=== PATIENT | male | born 1955 | race Hispanic/Latino ===

== ENCOUNTER → 2018-07-30 | Outpatient (CLI) | payer OTHER ==
[~2018-07-30] MED LIST: REGADENOSON 0.4 MG/5 ML SYR IV ONE
--- NOTE | 2018-07-31 15:51 | Myoview Stress Test ---
DATE OF STUDY: 07/30/2018 09:13:00 Stress Test - Treadmill ONLY CARDIOLOGY STRESS REPORT STRESS SUMMARY: The patient received Lexiscan for stress testing under the usual infusion protocol. Baseline heart rate was 63 beats per minute and increased to 80 beats per minute at stress. The baseline blood pressure was 145/77 and increased to 157/71, a maximal stress. There was no cardiac symptoms elicited throughout the stress protocol. The test was ended after the end of infusion protocol. ELECTROCARDIOGRAPHIC STRESS SUMMARY: Baseline 12-lead electrocardiogram showed normal sinus rhythm. Throughout the stress protocol, there was no ST deviations or significant arrhythmias noted. MYOCARDIAL PERFUSION IMAGING: Myocardial perfusion images revealed a small mild partially reversible inferior perfusion defect. Left ventricular ejection fraction 53%. CONCLUSIONS: 1. Normal clinical, hemodynamic, electrocardiographic stress test. 2. Abnormal myocardial perfusion imaging showing small mild inferior ischemia. 3. Normal left ventricular ejection fraction estimated at 53%. DO RAVEN Hunt/DOROTHY /[id number]
== END ==
LOC: NM 09:03 → EDSEX 09:03
PROVIDERS: ATTEND Internal Medicine Interventional Cardiology
DX: I20.8 Other forms of angina pectoris (principal)
CPT/HCPCS: 78452; 93017; A9502; J2785

== ENCOUNTER → 2018-11-13 | Day surgery (SDC) | payer OTHER ==
[2018-11-09 13:20] LABS: BASOPHILS # (AUTO) 0.1 (0.0-0.1); BASOPHILS % 0.5 % (0.0-1.0); EOSINOPHILS # (AUTO) 0.4 (0.0-0.4); EOSINOPHILS % 3.3 % (0.0-6.0); HEMATOCRIT 38.3 % (38.2-49.6); HEMOGLOBIN 12.9 g/dL (14.0-18.0); LYMPHOCYTES # (AUTO) 3.2 (1.0-3.2); MEAN CORPUSCULAR HEMOGLOBIN 30.6 pg (28-32); MEAN CORPUSCULAR HGB CONC 33.7 g/dL (31-35); MONOCYTES % 7.5 % (4.4-11.3); NEUTROPHILS # (AUTO) 8.4 (2.1-6.9); NEUTROPHILS % 64.2 % (38.7-80.0); PLATELET COUNT 215 x10e3/uL (140-360); RED BLOOD COUNT 4.21 x10e6/uL (4.3-5.7); RED CELL DISTRIBUTION WIDTH 13.7 % (11.7-14.4)
[2018-11-09 13:40] LABS: ALBUMIN/GLOBULIN RATIO 1.1 (0.8-2.0); ANION GAP 16.7 mmol/L (8-16); CALCIUM 9.8 mg/dL (8.4-10.2); CREATININE, SERUM 1.69 mg/dL (0.72-1.25); POTASSIUM 4.7 mmol/L (3.5-5.1)
--- NOTE | 2018-11-12 15:36 | NUR ---
Dr. Yen notified BUN 29, creatinine 1.69, and eGFR 41. Dr. Yen ordered to give IV fluids at time of IV start.
[~2018-11-13] VITALS: Ht 190.5 cm; Wt 166.9 kg
[2018-11-13] VITALS (15 sets, daily range): BP systolic 116–140; BP diastolic 54–84
[~2018-11-13] MED LIST changes: +ALLOPURINOL300 MG PO; +ALPRAZOLAM 0.5 MG TAB ONE; +AMLODIPINE BESY10 MG PO; +ASPIR 8181 MG PO; +ASPIRIN 325 MG TAB ONE; +ATORVASTATIN CA20 MG PO; +ATORVASTATIN CA40 MG PO; +BIVALRIUDIN 250 MG/VIAL VIAL IV ONE; +CLOPIDOGREL75 MG PO; +DIOVAN160 MG PO; +DIOVAN320 MG PO; +DIPHENHYDRAMINE HCL 25 MG CAP ONE; +DORZOLAMIDE-TIM10 ML OD; +ESIDRIX25 MG PO; +FENTANYL CITRATE/PF 100MCG/2 ML INJ ONE; +HEPARIN SOD/SOD CHLORIDE 2,000 ML ONE; +HUMALOG100 UNIT/3; +HUMALOG100 UNIT/3 SC; +HYDROCHLOROTHIA25 MG PO; +IOPAMIDOL 370 MG/ML 200 ML INFUS..BTL INJ ONE; +LATANOPROST2.5 ML OU; +LIDOCAINE HCL 2% LOCAL 20 ML VIAL ONE; +LOPRESSOR25 MG PO; +METFORMIN HCL1000 MG PO; +METFORMIN HCL500 MG PO; +METOPROLOL TART25 MG PO; +MIDAZOLAM HCL 2 MG/2 ML VIAL ONE; +NAPROXEN250 MG PO; +NAPROXEN500 MG PO; +NIACIN500 M1 PO; +NIACIN500 M2 PO; +OZEMPIC SC; +PRASUGREL 10 MG TAB ONE; -REGADENOSON 0.4 MG/5 ML SYR IV ONE; +SODIUM CHLORIDE 0.9% 1000ML 1,000 ML ONE; +SODIUM CHLORIDE 0.9% 50ML 50 ML ONE; +TRESIBA INSULIN SC; +VERAPAMIL HCL 2.5 MG/ML 2 ML VIAL ONE; +[UNRECOGNIZED DRUG - OTHER] SC
--- OUTSIDE RECORDS SUMMARY | 2018-11-13 09:33 | XMS REPORT ---
Author Author [facility] Address Unknown Phone Unavailable Care Team Providers Care Physician Executive Name Role Phone MARY GOOD Unavailable Unavailable Problems This patient has no known problems. Allergies, Adverse Reactions, Alerts This patient has no known allergies or adverse reactions. Medications This patient has no known medications. Results Test Description Test Time Test Comments Text Results Atomic Results Result Comments Stress Test - Treadmill ONLY 2018-07-31 12:44:00 [place] [address] Patient Name : LISETH JOHNSON MR #: [id number] : 1955 Age/Sex: 63/M Adm Physician : MARY GOOD MD Admit Date : 07/30/18 Location : [place] Room/Bed : REPORT: Myoview Stress Test DATE OF STUDY: 07/30/2018 09:13:00 Stress Test - Treadmill ONLY CARDIOLOGY STRESS REPORT STRESS SUMMARY: The patient received Lexiscan for stress testing under the usual infusion protocol. Baseline heart rate was 63 beats per minute and increased to 80 beats per minute at stress. The baseline blood pressure was 145/77 and increased to 157/71, a maximal stress. There was no cardiac symptoms elicited throughout the stress protocol. The test was ended after the end of infusion protocol. ELECTROCARDIOGRAPHIC STRESS SUMMARY: Baseline 12-lead electrocardiogram showed normal sinus rhythm. Throughout the stress protocol, there was no ST deviations or significant arrhythmias noted. MYOCARDIAL PERFUSION IMAGING: Myocardial perfusion images revealed a small mild partially reversible inferior perfusion defect. Left ventricular ejection fraction 53%. CONCLUSIONS: 1. Normal clinical, hemodynamic, electrocardiographic stress test. 2. Abnormal myocardial perfusion imaging showing small mild inferior ischemia. 3. Normal left ventricular ejection fraction estimated at 53%. DO RAVEN Hunt/DOROTHY /[id number] Signature Date Dictated By: LADI HENRY DO Transcribed By: DOROTHY on 07/31/18 <Electronically signed by LADI HENRY DO><<Signature on File>>09/21/18 1520 COPY TO:
--- NOTE | 2018-11-13 11:55 | NUR ---
bedside report received from Jocelin MEHTA. Alert oriented and appropriate, PERRLA, respirations even and unlabored to room air. Pulses x4 extremities equal and strong. Cap fill brisk < 3 sec. + neurovascular function to right hand. family at bedside . VS WNL trend. No gross needs at this time.assume of care
--- NOTE | 2018-11-13 12:30 | NUR ---
Nutrition provided to patient. TR band balloon decreased by 2ml- cgf
--- NOTE | 2018-11-13 12:45 | NUR ---
1245 RADIAL Compression removal: Initial Cuff volume 12 cc 1245p -2 cc Removed No hematoma/bleeding noted with normal neurovascular function. already by Florentino Ceron RN 1300p -2 cc Removed No hematoma/ bleeding noted with normal neurovascular function. 1315p -2 cc Removed No hematoma/bleeding noted with normal neurovascular function. 1330p -2cc Removed No hematoma/ bleeding noted with normal neurovascular function. Air removal completed. Ok for dc and 1630pm. awaiting bed disposition by supervisor powder and primer canning.To Tele observation Stasis achieved sterile 2x2,Tegaderm, Coban dressing No hematoma, bleeding noted with normal neurovascular function. Wrist splint in place. Pt instructed on POC. Ds/Rn
--- NOTE | 2018-11-13 12:45 | NUR ---
1245 Addendum: 11/13/18 at 2148 by Magda Clayton RN 1245 initial time documentation please disregard in error see second notation ds/rn
--- NOTE | 2018-11-13 13:00 | Operative Report ---
DATE OF PROCEDURE: 11/13/2018 SURGEON: Himanshu Yen MD INDICATION: Coronary artery disease, abnormal stress test. PROCEDURES PERFORMED: 1. Left heart catheterization, selective coronary angiography. 2. Stent placement to the mid and distal left anterior descending artery. 3. Deployment of right wrist TR band. COMPLICATIONS: None. RECOMMENDATIONS: Dual antiplatelet therapy for at least 6 months. DESCRIPTION OF PROCEDURE: Access obtained in the right radial artery using ultrasound guidance. A 5-Tanzanian sheath was placed. Intravenous heparin, Angiomax was administered for anticoagulation. Coronary angiography demonstrated mild disease, mild to moderate coronary artery disease in the left main circumflex right coronary artery of diffuse 30% to 50% luminal stenosis mid and distal right coronary artery 90% stenosis. A decision was made to intervene on the left anterior descending artery and left main was cannulated using an EBU 3.75, 5-Tanzanian guiding catheter. A short Luge wire was advanced across the lesion for support. Two stents overlapping 2.25 x 12 and 2.5 x 16 mm Elite 12 mm [place] [employer] Synergy stents were deployed with excellent end result, less than 10% residual stenosis RENITA-3 flow. No complications. Right wrist TR band applied. The patient discharged home same day. Himanshu Yen MD KSB/MODL /[id number]
--- NOTE | 2018-11-13 15:00 | NUR ---
1530p received tele observation bed 114.ok to dc at 1630pm. Will dc bed transfer and dc home TR band is off no gross issues pain,pallor pressure or dysrhythmia. PPx4 palpable /swollen and discolored. Bilateral feet will be reassessed Dr Farshad myers MD and pt aware of importance of f/o care.POC copies with family ds/rn
--- NOTE | 2018-11-13 16:30 | NUR ---
1630 Pt meets DC criteria. Rt Radial site assessed for s/s of complication and presence of hematoma. warm, dry, discolor feet, and pulses present. IV removed from left hand Distal tip appears intact. VS WNL. Pt denies pain, sob, or need at this time. Family at XXXXX. Review of discharge paperwork and follow up instructions. verbalized understanding. Pt to wheelchair and transported to front of hospital. Transferred to private vehicle under own strength w/o incident with DC paperwork in hand. - ds/rn
== END | disposition home or self-care (01) ==
LOC: CATH LAB 09:14
PROVIDERS: ATTEND Internal Medicine Interventional Cardiology
DX: I25.10 Atherosclerotic heart disease of native coronary artery without angina pectoris (principal); R94.39 Abnormal result of other cardiovascular function study; I10 Essential (primary) hypertension; E11.9 Type 2 diabetes mellitus without complications; Z01.812 Encounter for preprocedural laboratory examination; Z79.84 Long term (current) use of oral hypoglycemic drugs; Z79.82 Long term (current) use of aspirin; Z79.4 Long term (current) use of insulin
CPT/HCPCS: 36415; 76937; 80053; 85025; 92928; 93454; C1769 ×2; C1874; C1887; J0583; J2001; J2250; J3010; J7030; Q9967

== ENCOUNTER 2018-12-23 00:43 | Inpatient (IN) | payer OTHER ==
[~2018-12-23] VITALS: Ht 190.5 cm; Wt 152.4 kg
[2018-12-23] VITALS (8 sets, daily range): BP systolic 118–136; BP diastolic 56–68
[~2018-12-23 00:43] MED LIST changes: -ALPRAZOLAM 0.5 MG TAB ONE; -ASPIRIN 325 MG TAB ONE; -ATORVASTATIN CA40 MG PO; -BIVALRIUDIN 250 MG/VIAL VIAL IV ONE; -CLOPIDOGREL75 MG PO; -DIOVAN320 MG PO; -DIPHENHYDRAMINE HCL 25 MG CAP ONE; -DORZOLAMIDE-TIM10 ML OD; -ESIDRIX25 MG PO; -FENTANYL CITRATE/PF 100MCG/2 ML INJ ONE; -HEPARIN SOD/SOD CHLORIDE 2,000 ML ONE; -HUMALOG100 UNIT/3; -IOPAMIDOL 370 MG/ML 200 ML INFUS..BTL INJ ONE; -LATANOPROST2.5 ML OU; -LIDOCAINE HCL 2% LOCAL 20 ML VIAL ONE; -LOPRESSOR25 MG PO; -METFORMIN HCL1000 MG PO; -MIDAZOLAM HCL 2 MG/2 ML VIAL ONE; -NAPROXEN500 MG PO; -NIACIN500 M1 PO; -OZEMPIC SC; -PRASUGREL 10 MG TAB ONE; -SODIUM CHLORIDE 0.9% 1000ML 1,000 ML ONE; -SODIUM CHLORIDE 0.9% 50ML 50 ML ONE; -VERAPAMIL HCL 2.5 MG/ML 2 ML VIAL ONE
[2018-12-23] MEDS ORDERED: SODIUM CHLORIDE 0.9% 1000ML 1,000 ML ONE (00:57)
[2018-12-23] MEDS ORDERED: SODIUM CHLORIDE 0.9% 1000ML 1,000 ML IV ONE (01:00)
[2018-12-23 01:08] LABS: BASOPHILS # (AUTO) 0.1 (0.0-0.1); BASOPHILS % 0.6 % (0.0-1.0); EOSINOPHILS # (AUTO) 0.3 (0.0-0.4); EOSINOPHILS % 2.4 % (0.0-6.0); HEMATOCRIT 35.4 % (38.2-49.6); LYMPHOCYTES # (AUTO) 2.1 (1.0-3.2); LYMPHOCYTES % 18.1 % (18.0-39.1); MEAN CORPUSCULAR HEMOGLOBIN 30.8 pg (28-32); MEAN CORPUSCULAR HGB CONC 33.9 g/dL (31-35); MEAN CORPUSCULAR VOLUME 90.8 fL (81-99); MONOCYTES # (AUTO) 0.8 (0.2-0.8); MONOCYTES % 6.8 % (4.4-11.3); NEUTROPHILS # (AUTO) 8.4 (2.1-6.9); NEUTROPHILS % 71.8 % (38.7-80.0); PLATELET COUNT 234 x10e3/uL (140-360); RED CELL DISTRIBUTION WIDTH 13.9 % (11.7-14.4)
[2018-12-23 01:38] LABS: ALANINE AMINOTRANSFERASE 29 IU/L (0-55); ALBUMIN 4.1 g/dL (3.5-5.0); ALBUMIN/GLOBULIN RATIO 1.2 (0.8-2.0); ALKALINE PHOSPHATASE 93 IU/L (40-150); ANION GAP 18.4 mmol/L (8-16); BLOOD UREA NITROGEN 59 mg/dL (7-26); BUN/CREATININE RATIO 15 (6-25); CALCIUM 9.7 mg/dL (8.4-10.2); CARBON DIOXIDE 15 mmol/L (22-29); CHLORIDE 106 mmol/L (98-107); CREATINE KINASE 201 IU/L (30-200); CREATININE, SERUM 3.99 mg/dL (0.72-1.25); EST GLOMERULAR FILTRATION RATE 15 ML/MIN (60-); GLUCOSE 102 mg/dL (74-118); POTASSIUM 5.4 mmol/L (3.5-5.1); SODIUM 134 mmol/L (136-145)
--- NOTE | 2018-12-23 01:44 | Diagnostic Imaging Report ---
EXAMINATION: Head CT without contrast. HISTORY:Dizziness. COMPARISON:None. TECHNIQUE: Multidetector axial images were obtained from the foramen magnum to the vertex without contrast. The images were reconstructed using brain and bone algorithms. Thin section brain images were reformatted into coronal and sagittal planes. Dose modulation, iterative reconstruction, and/or weight based adjustment of the mA/kV was utilized to reduce the radiation dose to as low as reasonably achievable. Intravenous contrast: None IMAGE QUALITY: Suboptimal evaluation particularly at the level of skull base and posterior fossa structures due to streak artifacts. FINDINGS: Skull/scalp: No lytic or blastic. lesions. No surgical changes. Parenchyma: Nonspecific few, scattered supratentorial white matter hypodensity are likely related to small vessel ischemic changes. No acute hemorrhage, mass or acute major vascular territorial infarct. Arteries: No density suggestive of thrombosis. Atherosclerotic calcification in bilateral carotid siphon and V4 segment of vertebral arteries. Dural sinuses: No abnormal density suggestive of thrombosis. Ventricles: No hydrocephalus or displacement. Extra-axial spaces: No abnormal density. Brain volume: Normal for age. Craniocervical junction: No mass, Chiari malformation, or basilar invagination. Sella: No mass. Paranasal/mastoid sinuses: Imaged portions unremarkable. IMPRESSION: No acute intracranial abnormality. Mild supratentorial white matter microvascular ischemic changes. Signed by: Dr. Esperanza Valdivia M.D. on 12/23/2018 1:41 AM
--- NOTE | 2018-12-23 01:57 | Diagnostic Imaging Report ---
Examination: Single portable AP view of the chest. COMPARISON: None. INDICATION: Dizziness for one day IMPRESSION: 1. Lines and Tubes: None 2. Lungs are grossly clear. No consolidation or effusion. 3. Cardiomediastinal silhouette is normal. Pulmonary vasculature is normal. 4. No acute bony abnormalities. Signed by: Dr. Anthony Michaels M.D. on 12/23/2018 1:54 AM
[2018-12-23] MEDS ORDERED: ONDANSETRON HCL INJ 2MG/ML 2ML 2 MG/ML VIAL IV STA (01:58)
[2018-12-23] MEDS ORDERED: MECLIZINE HCL 12.5 MG TAB PO ONE (02:00)
--- NOTE | 2018-12-23 02:01 | NUR ---
PT STATES FEELS LIKE HE IS GOING TO VOMIT SUDDENLY, MD AWARE, MEDICATED PER ORDERS
--- NOTE | 2018-12-23 02:14 | NUR ---
REPEAT BMP COLLECTED AND SENT
[2018-12-23 02:49] LABS: ANION GAP 17.5 mmol/L (8-16); CALCIUM 9.4 mg/dL (8.4-10.2); CREATININE, SERUM 3.74 mg/dL (0.72-1.25); POTASSIUM 5.5 mmol/L (3.5-5.1)
[2018-12-23] MEDS ORDERED: SODIUM BICARBONATE 8.4% INJ 50 ML SYR IV STA (02:58)
[2018-12-23] MEDS ORDERED: CALCIUM CHLORIDE 10% 1.36 MEQ/ML 10ML SYR IV STA (02:58)
[2018-12-23] MEDS ORDERED: INSULIN REGULAR, HUMAN 100 UNIT/1 ML 3ML VIAL IV ONE (03:00)
[2018-12-23] MEDS ORDERED: DEXTROSE 50% SYRINGE 50 ML IV ONE (03:00)
[2018-12-23] MEDS ORDERED: LIDOCAINE JELLY 2% 10ML URO-JET TOP ONE (03:00)
--- NOTE | 2018-12-23 03:00 | NUR ---
BLADDER SCAN PERFORMED WITH FOLLOWING RESULTS: >465 >720 >640 PT ATTEMPTED TO VOID IN URINAL AND COULD NOT VOID. PT ALSO RELATES HE HAS ELEVATED PSA LEVELS AND RECENTLY TOOK ANTIBIOTICS FOR PROSTATE. DR WYLIE INFORMED.
[2018-12-23] MEDS ORDERED: SODIUM CHLORIDE 0.9% 50ML 50 ML ONE (03:13)
[2018-12-23] MEDS ORDERED: LATANOPROST2.5 ML OU (03:33)
[2018-12-23] MEDS ORDERED: NAPROXEN500 MG PO (03:33)
[2018-12-23] MEDS ORDERED: ATORVASTATIN CA40 MG PO (03:33)
[2018-12-23] MEDS ORDERED: OZEMPIC SC (03:33)
[2018-12-23] MEDS ORDERED: CLOPIDOGREL75 MG PO (03:33)
[2018-12-23] MEDS ORDERED: HUMALOG100 UNIT/3 (03:33)
[2018-12-23] MEDS ORDERED: LOPRESSOR25 MG PO (03:33)
[2018-12-23] MEDS ORDERED: DIOVAN320 MG PO (03:33)
[2018-12-23] MEDS ORDERED: ESIDRIX25 MG PO (03:33)
[2018-12-23] MEDS ORDERED: DORZOLAMIDE-TIM10 ML OD (03:33)
[2018-12-23] MEDS ORDERED: METFORMIN HCL1000 MG PO (03:33)
[2018-12-23] MEDS ORDERED: NIACIN500 M1 PO (03:33)
--- NOTE | 2018-12-23 03:44 | NUR ---
INITIAL OUTPUT FROM [facility] 1000 AND STILL FLOWING, CLAMPED FOR 20 MINUTES, EMPTIED ADDITIONAL 1000 FROM [facility], CLAMPED AGAIN, DR WYLIE INFORMED.
[2018-12-23] MEDS ORDERED: DEXTROSE 5%/0.45% SOD CHL 1,000 ML IV ONE (03:53)
[2018-12-23] MEDS ORDERED: SODIUM BICARBONATE 8.4% SYRING 100 ML ONE (03:53)
[2018-12-23] MEDS ORDERED: DEXTROSE 50% SYRINGE 50 ML IV PRN (04:00)
[2018-12-23] MEDS ORDERED: SOD CHL IV SCH (04:00)
[2018-12-23] MEDS ORDERED: OZEMPIC 0.5 MG SC SCH ×2 (04:00→09:00)
[2018-12-23] MEDS ORDERED: DEXTROSE IV SCH (04:00)
[2018-12-23] MEDS ORDERED: ONDANSETRON HCL INJ 2MG/ML 2ML 2 MG/ML VIAL IV PRN (04:00)
[2018-12-23] MEDS ORDERED: SODIUM BICARBONATE IV SCH (04:00)
[2018-12-23 04:14] LABS: BILIRUBIN,URINE NEGATIVE (NEGATIVE); CLARITY,URINE CLEAR (CLEAR); COLOR,URINE YELLOW (YELLOW); KETONES,URINE NEGATIVE (NEGATIVE); LEUKOCYTE ESTERASE ,URINE NEGATIVE (NEGATIVE); NITRITE,URINE NEGATIVE (NEGATIVE); PROTEIN,URINE DIPSTICK NEGATIVE (NEGATIVE); URINE UROBILINOGEN 0.2 mg/dL (0.2 - 1)
--- NOTE | 2018-12-23 04:18 | NUR ---
unclamped frias, additional 750ml emptied, now draining to gravity
[2018-12-23] MEDS ORDERED: SODIUM BICARBONATE 8.4% SYRING 75 ML in DEXTROSE 5%/0.45% SOD CHL 1,000 ML IV SCH (04:30)
--- NOTE | 2018-12-23 04:40 | NUR ---
PATIENT WAS BROUGHT FROM ER IN A STRETCHER WITH C/O DIZZY AND NECK PAIN.AAOX3.TELE #[address] SH[address]ING SRJESSICA IS IN PLACE.ASSESSMENT DONE.NO RESP.DISTRESS NO PAIN VOICED RIGHT NOW.ORIENTED TO THE UNIT.DRAINING WELL.BED LOCKED AND IN LOWEST POSITION.PHONE AND CALL LIGHT WITHIN REACH.INSTRUCTED TO CALL FOR ASSISTANCE NEEDED.
[2018-12-23 04:47] LABS: BACTERIA,URINE MANY /HPF; EPITHELIAL CELLS,URINE MANY /LPF
[2018-12-23 04:54] LABS: SODIUM,URINE 60 mmol/L
--- NOTE | 2018-12-23 06:59 | NUR ---
BED SIDE SHIFT REPORT GIVEN TO THE ONCOMING RN.STABLE CONDITION.
[2018-12-23] MEDS: INSULIN REGULAR, HUMAN 100 UNIT/1 ML 3ML VIAL SQ SCH ×4 (07:30→20:37)
[2018-12-23] MEDS: ALLOPURINOL 300 MG TAB PO SCH (08:59)
[2018-12-23] MEDS: NIACIN 500 MG TABSR PO SCH (08:59)
[2018-12-23] MEDS: CLOPIDOGREL BISULFATE 75 MG TAB PO SCH (08:59)
[2018-12-23] MEDS: ASPIRIN 81 MG CHEW TAB PO SCH (08:59)
[2018-12-23] MEDS ORDERED: NON-FORMULARY MEDICATION (Atorvastatin Calcium 40 MG) PO SCH (09:00)
[2018-12-23] MEDS ORDERED: NON-FORMULARY MEDICATION (Dorzolamide Hcl/Timolol Maleat (Dorzolamide-Timolol Eye Drops) 1 OD SCH (09:00)
[2018-12-23] MEDS ORDERED: LATANOPROST(OPTH) 2.5 ML BTL OU SCH (09:00)
[2018-12-23] MEDS ORDERED: NIACIN 1000 MG PO SCH (09:00)
--- NOTE | 2018-12-23 11:03 | History and Physical ---
CHIEF COMPLAINT: A 63-year-old male comes in with dizziness. HISTORY OF PRESENT ILLNESS: Mr. Fu was out dancing with his , started out with a neck pain, which later on led on to dizziness and the patient came into the emergency room. The patient had a similar episode of this, but not of this intensity about a week ago, did not go to the hospital. Has been following up with his primary care physician, Dr. Castano and also with his lathe hand, Dr. Dudley. No kidney function problems have been noted earlier, but this particular time the patient came in the patient had an elevated creatinine and is admitted for the same. PAST MEDICAL HISTORY: History of diabetes mellitus. Last A1c was 6.2. History of elevated PSA, has been started on antibiotics unknown name, history of hypertension, history of CAD, history of hyperlipidemia, and history of glaucoma. MEDICATIONS: Allopurinol 300 mg daily, amlodipine 10 mg daily, aspirin 81 mg daily, atorvastatin 40 mg daily, Plavix 75 mg daily. The patient also takes timolol and dorzolamide one drop b.i.d., hydrochlorothiazide 25 mg daily, insulin Humalog, latanoprost, metformin 1000 mg twice a day, metoprolol, Lopressor 25 mg twice a day, naproxen 500 mg b.i.d., and valsartan 320 mg daily. The patient has been started on Ozempic on a daily basis too. PAST SURGICAL HISTORY: History of gallbladder removal, history of appendectomy, history of lipoma of head, history of hammertoes being corrected, history of cataract surgery, history of recent stent by Dr. Delarosa and also history of vein ablation by Dr. Dow for peripheral vascular disease, and also for venous insufficiency. FAMILY HISTORY: Father with dementia and also with BPH. The patient's mother with history esophageal cancer. SOCIAL HISTORY: No smoking, social drinker. REVIEW OF SYSTEMS: Negative for chest pain. No shortness of breath. No nausea. No vomiting. Positive for dizziness as mentioned above and neck pain. No diplopia. No blurry vision and positive for neck pain too. PHYSICAL EXAMINATION: VITAL SIGNS: Temperature is 98.3, pulse of 86, respirations of 16, blood pressure is 118/56, pulse oximetry of 96% on room air. HEENT: Normocephalic, atraumatic. The patient is obese. NECK: Positive for tenderness in the C5-C6 area. The patient also has decreased flexibility in the neck, pain on flexion and extension. Tenderness in the paraspinal muscles. CVS: S1, S2 distant. Regular rate and rhythm. ABDOMEN: Nontender, nondistended. LUNGS: Good air entry. ABDOMEN: Nontender, nondistended. EXTREMITIES: No clubbing, no cyanosis. Positive for venous changes and venous dermatitis present. Positive onychomycosis to a decreased sensation. LABORATORY DATA: [place] [address], hemoglobin of 12, hematocrit 35.4. Chemistry, sodium of 135, potassium 5.5, BUN of 59, creatinine of 3.74 with a GFR of 16. CK was 201. Troponins were not done. Urine, white count 6 to 10. IMAGING STUDIES: CT of the brain essentially normal. Chest x-ray, no acute bony abnormalities. ASSESSMENT: This is a 63-year-old gentleman with. 1. History of dizziness. 2. Acute kidney injury. 3. Obstructive uropathy. 4. Diabetes mellitus. 5. Hypertension. 6. Hyperlipidemia. 7. Morbid obesity. 8. History of intake of NSAIDs. PLAN: 1. Plan would be to hydrate the patient. A consult with Dr. Romo has been done and consult with Dr. Hoskins has been done too. 2. Continue with his medication. We will take him off his metformin, take him off his Esidrex and continue on allopurinol, aspirin, and also atorvastatin. Insulin sliding skin has been implemented. Further recommendation per clinical course. We will continue to monitor the patient. MD LOIS Valadez/MODL /[id number]
[2018-12-23 12:21] LABS: ANION GAP 12.9 mmol/L (8-16); CALCIUM 9.4 mg/dL (8.4-10.2); CREATININE, SERUM 2.77 mg/dL (0.72-1.25); POTASSIUM 4.9 mmol/L (3.5-5.1)
[2018-12-23] MEDS: DORZOLAMIDE/TIMOLOL/PF 1 EACH DROPERETTE OP SCH ×2 (15:48→15:51)
[2018-12-23] MEDS: SODIUM BICARBONATE 8.4% SYRING 75 ML in DEXTROSE 5%/0.45% SOD CHL 1,000 ML IV SCH (15:48)
--- NOTE | 2018-12-23 16:45 | Consultation ---
DATE OF CONSULTATION: Cardiology Consultation REQUESTING PHYSICIAN: Uche Knutson MD. REASON FOR CONSULTATION: Hypotension and also ongoing cardiovascular disease. HISTORY OF PRESENT ILLNESS: Mr. Link is a 63-year-old male with a pertinent past medical history of coronary artery disease, status post LAD PCI on the November 13, 2018. Also, hypertension and diabetes. He states that he has been doing well and also dances a lot. However, recently the last 2 weeks noticed as soon as he started dancing, he would experience severe neck pain and prior to coming into the ER yesterday, his neck pain was the worst he has ever experienced and he also started experiencing dizziness and leg weakness. He also does report for the last few weeks to months, he has noticed not being able to urinate as much as he used to. He is noted to be in acute renal failure on admission. We were consulted to see this patient due to presenting blood pressures of 80s over 50s. The patient does report that he was on 4 antihypertensives at home, of which he has been taking faithfully. He also reports recent medication change per his survey manager, Dr. Emily Dudley. He reports that he was recently started on Ozempic and also metformin and has lost 36 pounds in the last month. At this present time, he denies any chest pain, shortness of breath, palpitations, dizziness, syncope, fever, chills, or abdominal pain. He does endorse bilateral lower extremity edema and also recent burning with irritation and recent treatment for prostatitis. PAST MEDICAL HISTORY: Diabetes type 2, hypertension, and coronary artery disease with a recent LAD PCI. PAST SURGICAL HISTORY: Appendectomy, cholecystectomy, and cataract surgery. SOCIAL HISTORY: He is and lives with his . REVIEW OF SYSTEMS: Negative except as mentioned above. PHYSICAL EXAMINATION: GENERAL: Alert and oriented x3. Resting comfortably in bed. Does not appear to be in any acute distress. NECK: Supple. No JVD noted. LUNGS: Diminished breath sounds throughout. No wheezing. No rhonchi or crackles. CARDIOVASCULAR: Regular rate and rhythm. Normal S1 and S2. No murmurs, no gallops noted. ABDOMEN: Rounded, soft, and nontender. EXTREMITIES: Lower extremity, 2+ nonpitting edema with bilateral hyperpigmentation noted. VITAL SIGNS: Temperature 98.3, pulse 88, respiratory rate 16, blood pressure 104/49, and oxygen saturation 99% on room air. CARDIOVASCULAR MEDICATIONS: Plavix 75 mg p.o. daily, aspirin 81 mg p.o. daily, and atorvastatin 40 mg p.o. at bedtime. LABORATORY DATA: WBC 11.70, hemoglobin 12.0, hematocrit 35.4, and platelets 234. Sodium 137, potassium 4.9, BUN 44, and creatinine 2.77. Chest x-ray with no consolidation or effusion. No acute bony abnormalities. CT scan of the brain with no acute intracranial abnormalities. There is mild supratentorial white matter microvascular ischemic changes. TELEMETRY: Normal sinus rhythm. IMPRESSION: 1. Acute renal failure. 2. Coronary artery disease, status post LAD PCI on 11/13/2018. 3. Diabetes mellitus type 2. 4. Hypotension with a history of hypertension. 5. Hyperlipidemia. 6. Morbid obesity. 7. History of NSAID use. RECOMMENDATIONS: Maintain on telemetry at all time. Continue the above-listed cardiac medications. The patient's diabetic medications will be continued at this time. He has been taken off his metformin and also Ozempic at this time. Nephrology has been consulted. We will await their recommendations. At this time, continue with IV hydration and continue to monitor the patient very closely. We expect the blood pressure to stabilize and improve, as the patient gets more IV hydration. For now, continue to monitor blood pressure closely. The patient will need assistance out of bed. We will continue to follow this patient very closely. We will review his recent testing from the office. If further needed testing is indicated, we will pursue it. Thank you very much for this consultation, Dr. Knutson, we appreciate. Dictated by Kiera Peña, CLAYTON Himanshu Yen MD JWV/MODL /[id number]
[2018-12-23 17:02] LABS: CREATININE,URINE RANDOM 36.2 mg/dL (63-166)
[2018-12-23] MEDS: ATORVASTATIN 40 MG TAB PO SCH (21:31)
--- NOTE | 2018-12-23 21:37 | Consultation ---
DATE OF CONSULTATION: 12/23/2018 Renal Consultation REQUESTING PHYSICIAN: Uche Knutson MD. REASON FOR CONSULTATION: 1. Elevated serum creatinine. 2. Fluids, electrolytes, and acid-base management. 3. Hyperkalemia. 4. Acidosis. HISTORY OF PRESENT ILLNESS: This is a pleasant 63-year-old man with a history of: 1. Diabetes mellitus. 2. Hypertension. 3. Coronary artery disease. 4. History of elevated PSA. 5. Dyslipidemia. 6. Glaucoma. 7. Cholecystectomy. 8. Appendectomy. 9. Cataract surgery. 10. Chronic lymphedema. 11. Peripheral vascular disease. The patient was admitted to [facility] for elevated serum creatinine, hyperkalemia, and acidosis after he presented with a chief complaint of dizziness. His labs on admission showed serum creatinine level of 3.9 with BUN of 59, potassium of 5.4, sodium of 134 with serum bicarbonate of 15. He was medically treated and is currently on IV fluids with sodium bicarbonate and his serum creatinine has improved to 2.7 with BUN of 44 and improvement of serum potassium to 4.9 from 5.4. The patient's family member is at bedside. No report of chest pain, shortness of breath, nausea, vomiting, diarrhea, fever, or dysuria at the present time. His urine output was low and per report, had good urine output after placement of Greene catheter. MEDICATIONS: His home medication list includes metformin and ARB. PAST MEDICAL HISTORY: As per HPI. PAST SURGICAL HISTORY: As per HPI. ALLERGIES: TO MEDICATIONS, PER MAR. SOCIAL HISTORY: Negative x2. Social drinking. FAMILY HISTORY: Positive for cancer and dementia. REVIEW OF SYSTEMS: Positive for dizziness on admission as per HPI. Rest of the review of systems essentially negative. The patient is having no complaints of chest pain, shortness of breath, nausea, vomiting, diarrhea, fever, or headache. PHYSICAL EXAMINATION: GENERAL: Pleasant man in bed, in no acute respiratory distress at the present time. VITAL SIGNS: Blood pressure is 130/61, pulse is 87, respiratory rate 12, input and output noted. HEENT: Head atraumatic, normocephalic. NECK: Supple. LUNGS: Clear to auscultation bilaterally. CARDIOVASCULAR: S1 and S2 heard. ABDOMEN: Soft, obese. EXTREMITIES: Chronic lymphedema. NEUROLOGIC: Awake, alert. PSYCHIATRIC: Normal mood. GENITOURINARY: Greene catheter in place. LABORATORY DATA: Serum sodium 137, potassium 4.9, chloride 108, bicarbonate 21, BUN 44, creatinine 2.7, calcium is 9.4. Labs on admission showed serum sodium of 134, potassium 5.4, chloride 106, bicarbonate 15, BUN 59 with creatinine of 3.9. Hemoglobin is 12.0. IMAGING DATA: Chest x-ray findings noted. ASSESSMENT: 1. Acute kidney injury versus acute kidney injury on chronic kidney disease. 2. Hyponatremia-improved. 3. Hyperkalemia-improved. 4. Acidosis. 5. Urinary retention. 6. Diabetes mellitus. 7. Hypertension. 8. Obesity. 9. Chronic lymphedema. PLAN: 1. Differential for acute kidney injury includes prerenal azotemia versus acute tubular necrosis versus obstructive uropathy. Renal function is improving after placement of Greene catheter with good urine output. We will check renal ultrasound to evaluate the kidneys and rule out obstruction. We will continue to monitor renal indices and urine output. We will check UA plus microscopic analysis, urine sodium and urine creatinine levels. 2. Continue IV fluids with sodium bicarbonate for now. He has a history of chronic lymphedema. Once electrolyte, renal indices, and acid-base status improves, may consider to discontinue IV fluids. 3. Hyperkalemia in the setting of acute kidney injury plus acidosis plus possible obstructive uropathy plus ARB use at home. Hold valsartan. IV fluids with sodium bicarbonate as above. Improving serum potassium. Low-potassium diet for now. 4. Acidosis is improving. Continue sodium bicarbonate drip. 5. Monitor serum calcium, phosphorus, and magnesium levels. 6. Blood pressure is stable. Monitor. 7. Accu-Cheks and diabetes mellitus management plan by team. Stop metformin for now. 8. Strict I's and O's and daily weights. 9. Renally dose all medications. 10. Avoid NSAIDs except aspirin. 11. He is presently nonoliguric with no uremic symptoms. Therefore, no urgent indication for hemodialysis at the present time. We will continue to closely monitor his renal function, LFT status, serum electrolytes, urine output, and acid-base status. Thank you for the interesting consult. We will continue to closely follow the patient. Please do not hesitate to call us for any further questions. MD JOSS Quigley/DOROTHY /[id number]
--- NOTE | 2018-12-23 21:40 | Diagnostic Imaging Report ---
EXAM: Renal Ultrasound INDICATION: ^DEJUAN ^[id number] ^[id number] COMPARISON: None TECHNIQUE: Transverse and longitudinal images of the kidneys and bladder were obtained. FINDINGS: Right Kidney: Size: 13.5 cm, right renal cortex 2.6 cm. Appearance: Normal echogenicity. Collecting system: No hydronephrosis Stones: None Cyst/Mass: None Left Kidney: Size: 12.7 cm, left renal cortex 2.4 cm. Appearance: Normal echogenicity. Collecting system: No hydronephrosis Stones: None Cyst/Mass: None Bladder: Decompressed, with Greene catheter in place IMPRESSION: Right renal size in the upper limit of normal. Normal bilateral cortical thickness and echogenicity, without hydronephrosis, stones or solid lesions Signed by: Dr. Anthony Michaels M.D. on 12/23/2018 9:37 PM
[2018-12-23] MEDS: LATANOPROST(OPTH) 2.5 ML BTL OU SCH (22:30)
[2018-12-24] VITALS (7 sets, daily range): BP systolic 137–169; BP diastolic 54–81
--- NOTE | 2018-12-24 00:29 | NUR ---
Assessment done.no resp.distress.no pain voiced.frias care given.bed locked and in lowest position.phone and call light within reach.instructed to call for assistance as needed.
[2018-12-24] MEDS: SODIUM BICARBONATE 8.4% SYRING 75 ML in DEXTROSE 5%/0.45% SOD CHL 1,000 ML IV SCH ×2 (00:35→12:50)
[2018-12-24 06:31] LABS: BASOPHILS # (AUTO) 0.1 (0.0-0.1); BASOPHILS % 0.8 % (0.0-1.0); EOSINOPHILS # (AUTO) 0.3 (0.0-0.4); EOSINOPHILS % 3.3 % (0.0-6.0); HEMATOCRIT 35.1 % (38.2-49.6); HEMOGLOBIN 11.5 g/dL (14.0-18.0); LYMPHOCYTES # (AUTO) 2.4 (1.0-3.2); LYMPHOCYTES % 23.4 % (18.0-39.1); MEAN CORPUSCULAR HEMOGLOBIN 30.3 pg (28-32); MEAN CORPUSCULAR HGB CONC 32.8 g/dL (31-35); MEAN CORPUSCULAR VOLUME 92.4 fL (81-99); MONOCYTES # (AUTO) 0.9 (0.2-0.8); NEUTROPHILS # (AUTO) 6.5 (2.1-6.9); NEUTROPHILS % 63.1 % (38.7-80.0); PLATELET COUNT 213 x10e3/uL (140-360)
[2018-12-24 06:54] LABS: ALBUMIN 3.7 g/dL (3.5-5.0); ALBUMIN/GLOBULIN RATIO 1.1 (0.8-2.0); ANION GAP 12.6 mmol/L (8-16); CALCIUM 9.8 mg/dL (8.4-10.2); CREATININE, SERUM 1.64 mg/dL (0.72-1.25); POTASSIUM 4.6 mmol/L (3.5-5.1)
[2018-12-24 07:14] LABS: MAGNESIUM 1.8 MG/DL (1.3-2.1); PHOSPHORUS 2.8 MG/DL (2.3-4.7)
--- NOTE | 2018-12-24 07:18 | NUR ---
BED SIDE SHIFT REPORT GIVEN TO THE ONCOMING RN.STABLE CONDITION.
[2018-12-24] MEDS: INSULIN REGULAR, HUMAN 100 UNIT/1 ML 3ML VIAL SQ SCH ×4 (07:30→21:00)
[2018-12-24] MEDS: DORZOLAMIDE/TIMOLOL/PF 1 EACH DROPERETTE OP SCH ×2 (08:24→16:58)
[2018-12-24] MEDS: ASPIRIN 81 MG CHEW TAB PO SCH (08:24)
[2018-12-24] MEDS: CLOPIDOGREL BISULFATE 75 MG TAB PO SCH (08:25)
[2018-12-24] MEDS: ALLOPURINOL 300 MG TAB PO SCH (08:25)
[2018-12-24] MEDS: NIACIN 500 MG TABSR PO SCH (08:25)
--- NOTE | 2018-12-24 09:06 | Progress Note ---
DATE: SUBJECTIVE: The patient comes in with acute renal failure, post-obstructive, history of diabetes mellitus, and history of dizziness. Currently, the patient is feeling better. Urine catheter in and Greene catheter in. No chest pain. No shortness of breath. Has no dizziness at this time either. OBJECTIVE: VITAL SIGNS: Temperature is 98.1, pulse of 74, respirations of 18, blood pressure is 141/62, pulse oximetry of 98%. HEENT: Normocephalic, atraumatic. Pupils are reactive to light and accommodation. The patient has a component of sleep apnea. CVS: S1, S2 normal. Regular rate and rhythm. Distant. EXTREMITIES: No clubbing. No cyanosis. Trophic changes and vascular changes present in the lower extremities. The patient has a Greene catheter further to gravity. LABORATORY VALUES: White count is 10.23, hemoglobin of 11.5, hematocrit of 35.7, downtrend. Sodium, potassium, and creatinine are pending at this time. IMAGING STUDIES: No imaging studies were done since yesterday. Medications as per medical reconciliation sheet and noted. ASSESSMENT: 1. History of dizziness. 2. Acute kidney injury. 3. Post-obstructive uropathy, urinary retention. 4. Diabetes mellitus. 5. Hypertension. 6. Hyperlipidemia. 7. Morbid obesity with hypoventilation syndrome. 8. Signs of radiculopathy. PLAN: Continue with Greene catheter. Awaiting cultures. All nephrotoxic medications have been discontinued. We will keep the patient on his allopurinol, aspirin, and atorvastatin. Further recommendations per clinical course and also on blood work and results. MD LOIS Valadez/MODL /[id number]
--- NOTE | 2018-12-24 09:56 | Consultation ---
DATE OF CONSULTATION: 12/23/2018 Urologic Consultation Consultation is called by Dr. Rodriguez in the emergency room, Dr. Uche Knutson. CHIEF COMPLAINT AND REASON FOR CONSULTATION: Urinary retention. HISTORY OF PRESENT ILLNESS: Mr. Link is a 63-year-old male, admitted to the hospital with dizziness, found to have urinary retention greater than 1000 mL, positive history of BPH, diabetes mellitus, coronary artery disease status post stent, gout, status post appendectomy, status post cholecystectomy. MEDICATIONS: Please see MAR, but most notable for aspirin and Plavix. ALLERGIES: NKDA. SOCIAL HISTORY: Denied smoking or drinking. FAMILY HISTORY: Denied urologic stones or malignancies. REVIEW OF SYSTEMS: Noncontributory other than problems mentioned above for 12 organ systems. PHYSICAL EXAMINATION: GENERAL: Elderly male, currently in no acute distress. VITAL SIGNS: Temperature 98.3, pulse 86, respirations 18, and blood pressure 118/56. HEENT: Sclerae anicteric. NECK: Supple. BACK: Without costovertebral angle tenderness bilaterally. ABDOMEN: Soft. It is nontender. It is nondistended. No palpable mass. No palpable hernias. No palpable adenopathy. : Normal male external genitalia. EXTREMITIES: No edema. NEUROLOGIC: Moves all 4 extremities. PSYCHIATRIC: Alert and appropriate. SKIN: Intact, normal color. PERTINENT LABORATORY DATA: Sodium 135, potassium 5.5, chloride 107, bicarb 16, BUN 59, creatinine 3.74, glucose 98. Hemoglobin 12, hematocrit 35, platelet count 234,000, white cell count 11,000. Urinalysis, 6-10 whites, 0 reds. IMPRESSION: 1. Urinary retention. 2. Benign prostatic hypertrophy. 3. Elevated PSA. 4. Urinary tract infection, present on admission. 5. Hyperkalemia. 6. Acute renal failure on chronic kidney disease, stage 4. 7. Obesity. PLAN: We will perform upper tract imaging to ensure there is no obstructive component of the renal failure. Defer lytes and heme to the primary and Nephrology. With elevated PSA, we would not recheck PSA at this time as will be retention. Thank you for allowing me to participate in the care of the patient. We will be happy to follow along with you. MD JALEEL Valenzuela/MODL /[id number]
[2018-12-24] MEDS ORDERED: ONDANSETRON HCL 4 MG ORAL DISINTEGRATING TAB PO PRN (10:45)
[2018-12-24 14:27] LABS: BILIRUBIN,URINE NEGATIVE (NEGATIVE); CLARITY,URINE CLEAR (CLEAR); COLOR,URINE YELLOW (YELLOW); KETONES,URINE NEGATIVE (NEGATIVE); LEUKOCYTE ESTERASE ,URINE TRACE (NEGATIVE); NITRITE,URINE NEGATIVE (NEGATIVE); PROTEIN,URINE DIPSTICK TRACE (NEGATIVE); URINE UROBILINOGEN 0.2 mg/dL (0.2 - 1)
[2018-12-24 14:44] LABS: CREATININE,URINE RANDOM 104.89 mg/dL (63-166); EPITHELIAL CELLS,URINE RARE /LPF; RBC,URINE 21-50 /HPF (0-5); TOTAL PROTEIN, URINE 22.6 mg/dL (1-14); WBC,URINE (MAN) 0-5 /HPF (0-5)
--- NOTE | 2018-12-24 18:20 | Progress Note ---
DATE: 12/24/2018 Cardiology Progress Note SUBJECTIVE: No major events overnight. OBJECTIVE: VITAL SIGNS: Temperature 98.1, pulse 71, respiratory rate 18, blood pressure 137/58, saturating 98% on room air. GENERAL: Obese, man, in no acute distress. CARDIOVASCULAR: Regular rate and rhythm. No murmurs, rubs, or gallops. LUNGS: Clear to auscultation bilaterally. ABDOMEN: Soft, nontender, nondistended. NEURO AND PSYCH: Alert and oriented to person, place, and time. Normal affect. INPATIENT MEDICATIONS: Reviewed. LABORATORY DATA: Reviewed. TELEMETRY DATA: Reviewed, shows normal sinus rhythm. ASSESSMENT AND PLAN: 1. Acute renal failure. 2. Coronary artery disease, status post LAD PCI on 11/13/2018. 3. Diabetes. 4. Hypotension with history of hypertension. 5. Hyperlipidemia. 6. Morbid obesity. RECOMMENDATIONS: Renal function is improving. Defer management to Nephrology. Doing well from cardiovascular standpoint. Continue dual antiplatelet therapy and current cardiovascular regimen. Thank you for this consult. We will continue to follow. MD ENRIQUE Tim/DOROTHY /[id number]
--- NOTE | 2018-12-24 19:00 | NUR ---
received report from day nurse. patient is resting comfortably in bed. bed is in lowest position and call light is within reach. will continue to monitor patient.
--- NOTE | 2018-12-24 19:10 | NUR ---
Report given to oncoming nurse of patient's status. Resting in bed, side rails upx2, call light within reach. Family at bedside AAOX4 to time, person, place, situation. Respirations even and unlabored. Denies pain.
--- NOTE | 2018-12-24 21:06 | Consultation ---
DATE OF CONSULTATION: 12/24/2018 History is predominantly from the patient and partly from . HISTORY OF PRESENT ILLNESS: This is a 63-year-old gentleman, who came in with weakness, dizziness, was found to be in urinary retention. Had about 2 L of urine drained after Greene catheter placement. Renal has been consulted for management of acute kidney injury. His initial lab showed a potassium of 5.4 with a serum creatinine of 3.99 and he was acidotic at that time. Since Greene catheter placement and relief of obstruction, his serum creatinine is down to 1.64 with a potassium 4.6 and bicarb 26. The patient is awake, alert, and oriented x3. No apparent distress, lying supine in bed. Denies prior history of any renal insufficiency or kidney stone disease. Denies prior history of any prostate enlargement. He denies any history of CO or CVA. He has a longstanding history of diabetes, peripheral vascular disease, peripheral neuropathy. He had numerous procedures done in his lower extremities, all vascular. Had a recent cath and apparent angioplasty with stent placement in his coronaries. He has been seeing Dr. Dudley for his diabetes and has been taking metformin and insulin. He is currently lying supine. ALLERGIES: HE DENIES ANY DRUG ALLERGIES. REVIEW OF SYSTEMS: Negative for nausea, vomiting, or shortness of breath. Denies fever or chills. Currently, he has an indwelling Greene catheter. CURRENT MEDICATIONS: Ondansetron p.r.n., niacin 100 mg daily, Xalatan in his eyes, insulin. He is on Plavix 75 mg daily, atorvastatin 40 mg at bedtime, aspirin 81 mg to chew, allopurinol 300 mg daily. He is also on IV bicarbonate drip. SOCIAL HISTORY: He does not smoke or drink. FAMILY HISTORY: Significant for diabetes. DATA: Ultrasound of the kidneys, 13.5 and 12.5 cm kidneys. There was no hydronephrosis noted. PHYSICAL EXAMINATION: GENERAL: Awake, alert, oriented x3, lying supine, in no apparent distress. VITAL SIGNS: Blood pressure 152/54, pulse rate 75, afebrile, respiratory rate 14, oxygen saturation 98% on room air. HEAD AND NECK: Cornea clear. Oral mucosa moist. Neck veins flat. LUNGS: Relatively clear. No rales or rhonchi are noted. HEART: S1, S2 audible. ABDOMEN: Obese, soft, nontender. Flanks full. No apparent visceromegaly. EXTREMITIES: Lower extremity examination shows no edema. IMPRESSION AND PLAN: Obstructive uropathy, metabolic acidosis, hyperkalemia resolved, has longstanding history of diabetes with likely diabetic nephropathy. I agree to hold and discontinue metformin altogether. Dr. Palacios's group is following as far as prostate enlargement or urinary tract obstruction is concerned. I will discontinue IV bicarbonate, obtain urinalysis, spot urine protein-creatinine ratio. Further recommendations to follow. MD ARISTIDES Alvarado/MODL /[id number]
[2018-12-24] MEDS: LATANOPROST(OPTH) 2.5 ML BTL OU SCH (21:09)
[2018-12-24] MEDS: ATORVASTATIN 40 MG TAB PO SCH (21:09)
[2018-12-25] VITALS (8 sets, daily range): BP systolic 123–154; BP diastolic 56–77
[2018-12-25 05:28] LABS: ALBUMIN 3.4 g/dL (3.5-5.0); ALBUMIN/GLOBULIN RATIO 0.9 (0.8-2.0); ANION GAP 11.3 mmol/L (8-16); CALCIUM 9.6 mg/dL (8.4-10.2); CREATININE, SERUM 1.37 mg/dL (0.72-1.25); POTASSIUM 4.3 mmol/L (3.5-5.1)
--- NOTE | 2018-12-25 06:44 | NUR ---
report given to day nurse. patient is resting comfortably in bed. bed is in lowest position and call light is within reach.
--- NOTE | 2018-12-25 07:28 | Progress Note ---
DATE: SUBJECTIVE: The patient is a 63-year-old gentleman, who comes in with acute obstructive uropathy. The patient is currently feeling better. No chest pain. No shortness of breath. No nausea, vomiting, diarrhea, or constipation. The patient has Greene to gravity. MEDICATIONS: Allopurinol, aspirin, atorvastatin, clopidogrel, insulin, latanoprost, niacin, and Zofran as needed. OBJECTIVE: VITAL SIGNS: Temperature is 98.0, pulse of 76, respirations of 19, blood pressure is 126/66, pulse oximetry of 96%. HEENT: Normocephalic, atraumatic. Pupils are reactive to light and accommodation. CVS: S1, S2 normal. ABDOMEN: Nontender nondistended, protuberant. LUNGS: Clear to auscultation. Greene catheter to gravity. EXTREMITIES: Lower extremity with vascular changes and trophic changes. LABORATORY VALUES: White count was normal yesterday. Hemoglobin is 11.5, hematocrit of 35.1. Chemistries today, sodium of 137, BUN of 20, creatinine of 1.37. Glucoses have been running normal. IMAGING STUDIES: Renal ultrasound shows right renal size in the upper limit of normal. Normal bilateral cortical thickness and echogenicity. No hydronephrosis or stones. ASSESSMENT: 1. Acute renal injury. Acute tubular necrosis. The patient is on bicarb. 2. The patient has an indwelling catheter for retention. Urology and Nephrology are consulted. 3. Diabetes. Continue on same program. Discontinue metformin. PLAN: Plan would be to get Physical therapy involved today to walk the patient. The patient can be discharged home in a day depending on his physical ability and also after urological intervention for retention, which could be Greene catheter for the next 2 weeks and follow up with Urology. MD YESY ValadezJ/MODL /[id number]
[2018-12-25] MEDS: DORZOLAMIDE/TIMOLOL/PF 1 EACH DROPERETTE OP SCH ×2 (08:37→16:04)
[2018-12-25] MEDS: NIACIN 500 MG TABSR PO SCH (08:37)
[2018-12-25] MEDS: ASPIRIN 81 MG CHEW TAB PO SCH (08:37)
[2018-12-25] MEDS: ALLOPURINOL 300 MG TAB PO SCH (08:37)
[2018-12-25] MEDS: CLOPIDOGREL BISULFATE 75 MG TAB PO SCH (08:37)
[2018-12-25] MEDS: INSULIN REGULAR, HUMAN 100 UNIT/1 ML 3ML VIAL SQ SCH ×4 (09:11→20:26)
--- NOTE | 2018-12-25 17:21 | Progress Note ---
DATE: 12/25/2018 Cardiology Progress Note SUBJECTIVE: No major events overnight. OBJECTIVE: VITAL SIGNS: Temperature afebrile, pulse 82, respiratory rate 20, blood pressure 125/63, and saturating 97% on room air. GENERAL: man, in no acute distress. CARDIOVASCULAR: Regular rate and rhythm. No murmurs, rubs, or gallops. LUNGS: Clear to auscultation bilaterally. ABDOMEN: Soft, nontender, and nondistended. NEURO AND PSYCH: Alert and oriented to person, place, and time. Normal affect. INPATIENT MEDICATIONS: Reviewed. LABORATORY DATA: Reviewed. TELEMETRY DATA: Reviewed, shows normal sinus rhythm. ASSESSMENT AND PLAN: 1. Acute renal failure. 2. Coronary artery disease, status post LAD PCI on 11/13/2018. 3. Diabetes. 4. Hypotension, now with history of hypertension. 5. Hyperlipidemia. 6. Morbid obesity. RECOMMENDATIONS: Renal function is improving, almost at the baseline. Doing well from cardiovascular standpoint. Continue dual antiplatelet therapy and risk factor control. Thank you for this consult. We will continue to follow. MD ENRIQUE Tim/DOROTHY /[id number]
--- NOTE | 2018-12-25 19:00 | NUR ---
Report given to oncoming nurse of patient's status. Resting in bed, side rails upx2, call light within reach. No s/s of acute distress noted.
--- NOTE | 2018-12-25 19:00 | NUR ---
received report from day nurse. patient is resting comfortably in bed. bed is in lowest position and call wesley is within reach. will continue to monitor patient.
[2018-12-25] MEDS: LATANOPROST(OPTH) 2.5 ML BTL OU SCH (20:30)
[2018-12-25] MEDS: ATORVASTATIN 40 MG TAB PO SCH (20:30)
[2018-12-26] VITALS: BP 135/61
[2018-12-26 04:00] VITALS: BP 143/67
[2018-12-26 05:01] LABS: BASOPHILS # (AUTO) 0.1 (0.0-0.1); BASOPHILS % 0.8 % (0.0-1.0); EOSINOPHILS # (AUTO) 0.4 (0.0-0.4); EOSINOPHILS % 3.9 % (0.0-6.0); HEMOGLOBIN 12.5 g/dL (14.0-18.0); LYMPHOCYTES # (AUTO) 2.5 (1.0-3.2); LYMPHOCYTES % 22.4 % (18.0-39.1); MEAN CORPUSCULAR HEMOGLOBIN 30.2 pg (28-32); MEAN CORPUSCULAR HGB CONC 32.9 g/dL (31-35); MEAN CORPUSCULAR VOLUME 91.8 fL (81-99); MONOCYTES # (AUTO) 0.9 (0.2-0.8); MONOCYTES % 8.5 % (4.4-11.3); NEUTROPHILS % 63.9 % (38.7-80.0); PLATELET COUNT 211 x10e3/uL (140-360); RED BLOOD COUNT 4.14 x10e6/uL (4.3-5.7); RED CELL DISTRIBUTION WIDTH 13.6 % (11.7-14.4)
[2018-12-26 05:33] LABS: ALBUMIN 3.5 g/dL (3.5-5.0); ALBUMIN/GLOBULIN RATIO 0.9 (0.8-2.0); CREATININE, SERUM 1.21 mg/dL (0.72-1.25)
--- NOTE | 2018-12-26 07:15 | NUR ---
report given to day nurse. patient is resting comfortably in bed. bed is in lowest position and call light is within reach.
[2018-12-26 07:37] VITALS: BP 154/75
[2018-12-26 08:37] VITALS: BP 154/75
[2018-12-26] MEDS: INSULIN REGULAR, HUMAN 100 UNIT/1 ML 3ML VIAL SQ SCH ×2 (08:37→12:09)
[2018-12-26] MEDS: DORZOLAMIDE/TIMOLOL/PF 1 EACH DROPERETTE OP SCH (08:39)
[2018-12-26] MEDS: CLOPIDOGREL BISULFATE 75 MG TAB PO SCH (08:39)
[2018-12-26] MEDS: ASPIRIN 81 MG CHEW TAB PO SCH (08:39)
[2018-12-26] MEDS: NIACIN 500 MG TABSR PO SCH (08:39)
[2018-12-26] MEDS: ALLOPURINOL 300 MG TAB PO SCH (08:39)
[2018-12-26 11:50] VITALS: BP 156/79
--- NOTE | 2018-12-26 12:25 | NUR ---
SPOKE TO MD PHAM REGARDING MD ESPARZA ROUNDING THIS AM AND STATING PT COULD BE DC WITH BOSTON AND FOLLOW UP IN 2 WITH FOR URODYNAMICS MD PHAM OK WITH SENDING PT HOME AT THIS TIME
--- NOTE | 2018-12-26 13:26 | NUR ---
DISCHARGE INSTRUCTIONS AND PRESCRIPTIONS GIVEN PT VERBALIZED UNDERSTANDING NO IV CURRENTLY IN PT, SO NO NEED FOR REMOVAL PT IS READY FOR DC. HOWEVER PT STATES IS AT WORK AND HAS KEYS FOR HOME, WONT GET OUT UNTIL 1800. PT IS TO UPDATE ME IF OTHER ALTERNATIVES OCCUR, PT STATES HE WILL TRY AND CALL NIZAHIDA
--- NOTE | 2018-12-26 14:52 | NUR ---
PT DISCHARGE TO HOME . DISCHARGE INSTRUCTIONS GIVEN PT VERBALIZED UNDERSTANDING LEG BAG GIVEN, TEACHING COMPLETE PT IS NOW OFF UNIT TO HOME AT THIS TIME
--- NOTE | 2018-12-26 16:47 | Progress Note ---
DATE: 12/26/2018 Cardiology Progress Note SUBJECTIVE: No major events overnight. OBJECTIVE: VITAL SIGNS: Temperature afebrile, pulse 76, respiratory rate 18, blood pressure 143/67, and saturating 96% on room air. GENERAL: Well developed, well nourished, no acute distress. CARDIOVASCULAR: Regular rate and rhythm. No murmurs, rubs, or gallops. LUNGS: Clear to auscultation bilaterally. ABDOMEN: Soft, nontender, and nondistended. NEURO AND PSYCH: Alert and oriented to person, place, and time. Normal affect. INPATIENT MEDICATIONS: Reviewed. LABORATORY DATA: Reviewed. TELEMETRY DATA: Reviewed, shows normal sinus rhythm. ASSESSMENT AND PLAN: 1. Acute renal failure. 2. Coronary artery disease, status post recent PCI. 3. Diabetes. 4. Hypertension. 5. Hyperlipidemia. 6. Morbid obesity. RECOMMENDATIONS: Renal function has now returned to baseline. The patient is pending discharge today, doing well from cardiovascular standpoint. We will follow up in clinic 1 to 2 weeks post discharge. Thank you for this consult. We will continue to follow. MD ENRIQUE Tim/RAHEEML /[id number]
== END 2018-12-26 14:52 | disposition home or self-care (01) | DRG 682 ==
LOC: ER 00:43 → ERHOLD 03:50 → MED/SURG 04:05
PROVIDERS: ADMIT Family Medicine; ATTEND Family Medicine
DX: I12.9 Hypertensive chronic kidney disease with stage 1 through stage 4 chronic kidney disease, or unspecified chronic kidney disease (principal); N17.0 Acute kidney failure with tubular necrosis; N17.9 Acute kidney failure, unspecified; Z68.41 Body mass index [BMI] 40.0-44.9, adult; E87.1 Hypo-osmolality and hyponatremia; E87.2 Acidosis; N39.0 Urinary tract infection, site not specified; N18.4 Chronic kidney disease, stage 4 (severe); E66.9 Obesity, unspecified; N18.9 Chronic kidney disease, unspecified
CPT/HCPCS: 36415; 51700; 70450; 71045; 76770; 80048; 80053; 81001; 82550; 82553; 82570; 82948; 83735; 84100; 84156; 84300; 84484; 85025; 93005; 99284; J1817; J2405; J7030; J7799

== ENCOUNTER 2019-01-01 04:05 | Emergency (ER) | payer OTHER ==
[~2019-01-01] VITALS: Ht 190.5 cm; Wt 152.4 kg
[~2019-01-01 04:05] MED LIST changes: +ATORVASTATIN CA40 MG PO; +CLOPIDOGREL75 MG PO; +DIOVAN320 MG PO; +DORZOLAMIDE-TIM10 ML OD; +ESIDRIX25 MG PO; +HUMALOG100 UNIT/3; +LATANOPROST2.5 ML OU; +LOPRESSOR25 MG PO; +METFORMIN HCL1000 MG PO; +NAPROXEN500 MG PO; +NIACIN500 M1 PO; +OZEMPIC SC
[2019-01-01] MEDS ORDERED: HYDROCODONE/APAP 10MG-325MG TAB PO ONE (04:45)
[2019-01-01] MEDS ORDERED: HYDROCODONE/APAP 10MG-325MG TAB ONE (04:51)
[2019-01-01] MEDS ORDERED: LIDOCAINE JELLY 2% 10ML URO-JET ONE (04:53)
[2019-01-01] MEDS ORDERED: LIDOCAINE JELLY 2% 10ML URO-JET TOP ONE (05:00)
== END 2019-01-01 05:43 | disposition home or self-care (01) ==
LOC: ER 04:05
DX: Z46.6 Encounter for fitting and adjustment of urinary device (principal)
CPT/HCPCS: 99282

== ENCOUNTER 2019-01-05 14:45 | Emergency (ER) | payer OTHER ==
[~2019-01-05] VITALS: Ht 190.5 cm; Wt 152.4 kg
--- NOTE | 2019-01-05 15:10 | NUR ---
CATHETER COLLECTION BAG CHANGED FROM LEG BAG TO BOSTON BAG. PT C/O EXTREME PAIN WITH MANIPULATION OF PENIS/AREA AROUND PENIS. DR DILL ALSO AT BS. URINARY DRAINAGE NOTED IN COLLECTION BAG.
[2019-01-05 15:40] LABS: BILIRUBIN,URINE NEGATIVE (NEGATIVE); CLARITY,URINE SL CLOUDY (CLEAR); COLOR,URINE YELLOW (YELLOW); KETONES,URINE NEGATIVE (NEGATIVE); LEUKOCYTE ESTERASE ,URINE SMALL (NEGATIVE); NITRITE,URINE NEGATIVE (NEGATIVE); PROTEIN,URINE DIPSTICK 3+ (NEGATIVE); URINE UROBILINOGEN 0.2 mg/dL (0.2 - 1)
[2019-01-05 15:58] LABS: BACTERIA,URINE RARE /HPF; RBC,URINE 21-50 /HPF (0-5); WBC,URINE (MAN) 0-5 /HPF (0-5)
[2019-01-05] MEDS ORDERED: LIDOCAINE HCL 2% JELLY 5 ML TUBE ONE (16:19)
== END 2019-01-05 16:20 | disposition home or self-care (01) ==
LOC: ER 14:45
DX: N48.1 Balanitis (principal)
CPT/HCPCS: 81001; 99282; J2001

== ENCOUNTER 2019-01-19 16:26 | Inpatient (IN) | payer OTHER ==
[~2019-01-19] VITALS: Ht 190.5 cm; Wt 146.5 kg
[2019-01-19] MEDS ORDERED: ACETAMINOPHEN 325 MG TAB PO NR (17:30)
[2019-01-19 17:31] LABS: BASOPHILS # (AUTO) 0.1 (0.0-0.1); BASOPHILS % 0.5 % (0.0-1.0); EOSINOPHILS # (AUTO) 0.1 (0.0-0.4); EOSINOPHILS % 0.2 % (0.0-6.0); HEMATOCRIT 37.2 % (38.2-49.6); HEMOGLOBIN 12.4 g/dL (14.0-18.0); LYMPHOCYTES # (AUTO) 3.5 (1.0-3.2); LYMPHOCYTES % 11.4 % (18.0-39.1); MEAN CORPUSCULAR HEMOGLOBIN 30.6 pg (28-32); MEAN CORPUSCULAR HGB CONC 33.3 g/dL (31-35); MEAN CORPUSCULAR VOLUME 91.9 fL (81-99); MONOCYTES # (AUTO) 2.1 (0.2-0.8); MONOCYTES % 6.7 % (4.4-11.3); NEUTROPHILS # (AUTO) 24.6 (2.1-6.9); NEUTROPHILS % 80.1 % (38.7-80.0); PLATELET COUNT 277 x10e3/uL (140-360); RED BLOOD COUNT 4.05 x10e6/uL (4.3-5.7); RED CELL DISTRIBUTION WIDTH 13.3 % (11.7-14.4)
[2019-01-19 17:41] LABS: ALBUMIN 3.1 g/dL (3.5-5.0); ALBUMIN/GLOBULIN RATIO 0.8 (0.8-2.0); ANION GAP 14.9 mmol/L (8-16); CALCIUM 9.4 mg/dL (8.4-10.2); CREATININE, SERUM 1.8 mg/dL (0.72-1.25); POTASSIUM 3.9 mmol/L (3.5-5.1)
[2019-01-19] MEDS ORDERED: SODIUM CHLORIDE 0.9% 1000ML 1,000 ML IV STA ×2 (17:52)
[2019-01-19] MEDS ORDERED: VANCOMYCIN 1GM/NS 250 ML 250 ML IV ONE (18:00)
--- NOTE | 2019-01-19 18:09 | Diagnostic Imaging Report ---
EXAMINATION: PA and lateral views of the chest. COMPARISON: Fever CLINICAL HISTORY: Sepsis DISCUSSION: Lines/tubes: None. Lungs: The lungs are well inflated and clear. No pneumonia or pulmonary edema. Pleura: No pleural effusion or pneumothorax. Heart and mediastinum: The cardiomediastinal silhouette is normal. Bones and soft tissues: No acute bony abnormalities. IMPRESSION: No acute cardiopulmonary abnormalities. Signed by: Dr. Kennedy Edmondson M.D. on 01/19/2019 6:05 PM
[2019-01-19 18:31] LABS: PLATELET ESTIMATE ADEQUATE; PLATELET MORPHOLOGY COMMENT FEW LARGE
[2019-01-19 18:32] LABS: RBC MORPHOLOGY COMMENT NORMAL
[2019-01-19] MEDS: CEFEPIME 2 GM/NS 0.9% 100 ML 100 ML IV SCH (18:59)
[2019-01-19 19:06] LABS: BILIRUBIN,URINE NEGATIVE (NEGATIVE); CLARITY,URINE CLOUDY (CLEAR); COLOR,URINE YELLOW (YELLOW); KETONES,URINE NEGATIVE (NEGATIVE); LEUKOCYTE ESTERASE ,URINE LARGE (NEGATIVE); NITRITE,URINE NEGATIVE (NEGATIVE); URINE UROBILINOGEN 0.2 mg/dL (0.2 - 1)
[2019-01-19 19:07] LABS: PROTEIN,URINE DIPSTICK 3+ (NEGATIVE)
[2019-01-19 19:29] LABS: BACTERIA,URINE RARE /HPF
[2019-01-19 19:30] LABS: EPITHELIAL CELLS,URINE FEW /LPF
[2019-01-19] MEDS ORDERED: MEROPENEM 1GM 100 ML IV SCH (19:30)
[2019-01-19 19:45] LABS: INFLUENZAE A&B ANTIGEN (RAPID) NEGATIVE (NEGATIVE); STREPTOCOCCUS GRP A ANTIGEN NEGATIVE (NEGATIVE)
[2019-01-19] MEDS ORDERED: DEXTROSE 50% SYRINGE 50 ML IV PRN (21:45)
[2019-01-19] MEDS ORDERED: ONDANSETRON HCL INJ 2MG/ML 2ML 2 MG/ML VIAL IV PRN (21:45)
[2019-01-19] MEDS ORDERED: ACETAMINOPHEN 325 MG TAB PO ONE (21:45)
--- NOTE | 2019-01-19 22:37 | Diagnostic Imaging Report ---
EXAM: CT Abdomen and Pelvis WITHOUT contrast INDICATION: ^STONE PROTOCOL ^[id number] ^2130 ^Y COMPARISON: Renal ultrasound dated 12/23/2018 TECHNIQUE: Abdomen and pelvis were scanned utilizing a multidetector helical scanner from the lung base to the pubic symphysis without administration of IV contrast. Absence of intravenous contrast decreases sensitivity for detection of focal lesions and vascular pathology. Coronal and sagittal reformations were obtained. Routine protocol was performed. IV CONTRAST: None ORAL CONTRAST: None COMPLICATIONS: None RADIATION DOSE: Total DLP: 1424.38 mGy*cm Estimated effective dose: (DLP x 0.015 x size factor) mSv CTDIvol has been reviewed. It is below the limits set by the Radiation Protocol Committee (RPC). FINDINGS: LINES and TUBES: Greene catheter. LOWER THORAX: Unremarkable HEPATOBILIARY: Unenhanced liver is unremarkable. No biliary ductal dilation. GALLBLADDER: Surgically absent. SPLEEN: No splenomegaly. PANCREAS: Atrophic. No focal masses or ductal dilatation. ADRENALS: No adrenal nodules KIDNEYS/URETERS: No hydronephrosis. Nonspecific bilateral perinephric fat stranding. Limited for evaluation of renal parenchyma without intravenous contrast. No stones. GI TRACT: No abnormal distention, wall thickening, or evidence of bowel obstruction. Appendix is not clearly visualized. PELVIC ORGANS/BLADDER: Bladder is collapsed by a Greene catheter in place. Small amount of air within bladder, related to instrumentation. Mild perivesical fat stranding. Enlarged prostate. LYMPH NODES: No lymphadenopathy. VESSELS: There is mild atherosclerotic disease in the aorta and major arterial branches. PERITONEUM / RETROPERITONEUM: No free air or fluid. BONES: Unremarkable. SOFT TISSUES: Diastases of the rectus muscles. IMPRESSION: 1. No nephrolithiasis or evidence of obstructive urolithiasis. 2. Perivesical mild fat stranding. Cystitis cannot be excluded. Signed by: Dr. Serg Fernandez MD on 01/19/2019 10:34 PM
[2019-01-19] MEDS: MEROPENEM 1GM 100 ML IV SCH (23:54)
[2019-01-20] MEDS: SODIUM CHLORIDE 0.9% 1000ML 1,000 ML IV SCH ×4 (00:07→21:45)
[2019-01-20 00:08] LABS: INR 1.26; PROTHROMBIN TIME 16.4 seconds (11.9-14.5)
[2019-01-20 00:09] LABS: PARTIAL THROMBOPLASTIN TIME 40.5 seconds (23.8-35.5)
[2019-01-20] MEDS ORDERED: HUMALOG100 UNIT/1 SQ ×3 (00:17)
[2019-01-20] MEDS ORDERED: TRISEBA SQ (00:17)
[2019-01-20] MEDS: ACETAMINOPHEN 325 MG TAB PO PRN ×3 (04:25→21:08)
[2019-01-20] MEDS: MEROPENEM 1GM 100 ML IV SCH ×3 (05:23→21:09)
[2019-01-20 05:42] LABS: BASOPHILS # (AUTO) 0.1 (0.0-0.1); BASOPHILS % 0.4 % (0.0-1.0); EOSINOPHILS # (AUTO) 0.1 (0.0-0.4); EOSINOPHILS % 0.4 % (0.0-6.0); HEMATOCRIT 35.1 % (38.2-49.6); HEMOGLOBIN 11.5 g/dL (14.0-18.0); LYMPHOCYTES # (AUTO) 2.2 (1.0-3.2); LYMPHOCYTES % 7.7 % (18.0-39.1); MEAN CORPUSCULAR HEMOGLOBIN 30.3 pg (28-32); MEAN CORPUSCULAR HGB CONC 32.8 g/dL (31-35); MEAN CORPUSCULAR VOLUME 92.6 fL (81-99); MONOCYTES # (AUTO) 1.8 (0.2-0.8); MONOCYTES % 6.3 % (4.4-11.3); NEUTROPHILS # (AUTO) 23.4 (2.1-6.9); PLATELET COUNT 221 x10e3/uL (140-360); RED BLOOD COUNT 3.79 x10e6/uL (4.3-5.7); RED CELL DISTRIBUTION WIDTH 13.4 % (11.7-14.4)
[2019-01-20] MEDS: CEFEPIME 2 GM/NS 0.9% 100 ML 100 ML IV SCH ×2 (06:28→18:50)
[2019-01-20 06:29] LABS: ALBUMIN 2.5 g/dL (3.5-5.0); ALBUMIN/GLOBULIN RATIO 0.7 (0.8-2.0); ANION GAP 13.4 mmol/L (8-16); CALCIUM 8.4 mg/dL (8.4-10.2); CREATININE, SERUM 1.26 mg/dL (0.72-1.25); POTASSIUM 3.4 mmol/L (3.5-5.1)
[2019-01-20] MEDS ORDERED: MELATONIN 5 MG TABLET PO PRN (07:00)
[2019-01-20] MEDS ORDERED: HYDRALAZINE HCL 20 MG/ML VIAL IV PRN (07:00)
[2019-01-20] MEDS: INSULIN REGULAR, HUMAN 100 UNIT/1 ML 3ML VIAL SQ SCH ×4 (07:51→21:07)
[2019-01-20] MEDS: ALLOPURINOL 300 MG TAB PO SCH (08:37)
[2019-01-20] MEDS: DORZOLAMIDE/TIMOLOL/PF 1 EACH DROPERETTE OP SCH ×2 (08:37→18:50)
[2019-01-20] MEDS: CLOPIDOGREL BISULFATE 75 MG TAB PO SCH (08:37)
[2019-01-20] MEDS: METOPROLOL TARTRATE 25 MG TAB PO SCH ×2 (08:38→17:03)
[2019-01-20] MEDS ORDERED: NON-FORMULARY MEDICATION (Dorzolamide Hcl/Timolol Maleat (Dorzolamide-Timolol Eye Drops) 1 OD SCH (09:00)
[2019-01-20] MEDS ORDERED: LATANOPROST(OPTH) 2.5 ML BTL OU SCH (09:00)
[2019-01-20] MEDS ORDERED: NON-FORMULARY MEDICATION (Atorvastatin Calcium 40 MG) PO SCH (09:00)
[2019-01-20 16:12] VITALS: BP 129/60
[2019-01-20 16:24] VITALS: BP 129/60
[2019-01-20 16:38] VITALS: BP 129/60
--- NOTE | 2019-01-20 16:42 | NUR ---
PATIENT ARRIVED ON THE UNIT FROM ER BY STRETCHER. PATIENT IS ALERT AND IN STABLE CONDITION WITH NO S/S OF RESPIRATORY DISTRESS. PATIENT DENIES PAIN. O2 APPLIED AT 2L NC. SKINS INTACT- BILATERAL DISCOLORATION ON LOWER EXTREMITIES NOTED. PATIENT AND HIS BOTH STATE ORIGINAL BOSTON PLACEMENT DATE TO BE HERE AT [facility]; PATIENT HAD A F/U APPOINTMENT WITH DR. ESPARZA ON January AND THEN ON January THE BOSTON WAS CHANGED FROM A 18F TO A 16F. PATIENT HAS A 16F BOSTON DRAINING TO A LEG BAG; URINE IS PALE/YELLOW AND CLEAR. PRESENT IN ROOM. CALL LIGHT IS WITHIN REACH, PATIENT IS INSTRUCTED TO CALL FOR ASSISTANCE NEEDED.
--- NOTE | 2019-01-20 19:13 | NUR ---
PATIENT IS SITTING ON THE SIDE OF THE BED- IN STABLE CONDITION WITH NO S/S OF RESPIRATORY DISTRESS. NO PAIN INDICATED. IV ANTIBIOTIC INFUSING. BED ALARM APPLIED. CALL LIGHT IS WITHIN REACH, PATIENT IS INSTRUCTED TO CALL FOR ASSISTANCE NEEDED. BEDSIDE REPORT GIVEN TO ONCOMING NURSE.
[2019-01-20 20:00] VITALS: BP 144/68
[2019-01-20] MEDS: LATANOPROST(OPTH) 2.5 ML BTL OU SCH (21:07)
[2019-01-20] MEDS: ATORVASTATIN 40 MG TAB PO SCH (21:07)
[2019-01-20] MEDS: INSULIN GLARGINE 100 UNITS/ML VIAL SQ SCH (21:08)
[2019-01-21] VITALS (8 sets, daily range): BP systolic 118–145; BP diastolic 56–65
[2019-01-21 03:55] LABS: BASOPHILS # (AUTO) 0.1 (0.0-0.1); BASOPHILS % 0.3 % (0.0-1.0); EOSINOPHILS # (AUTO) 0.2 (0.0-0.4); EOSINOPHILS % 0.9 % (0.0-6.0); HEMATOCRIT 34.1 % (38.2-49.6); HEMOGLOBIN 11.3 g/dL (14.0-18.0); LYMPHOCYTES # (AUTO) 1.9 (1.0-3.2); LYMPHOCYTES % 7.5 % (18.0-39.1); MEAN CORPUSCULAR HEMOGLOBIN 30.2 pg (28-32); MEAN CORPUSCULAR HGB CONC 33.1 g/dL (31-35); MEAN CORPUSCULAR VOLUME 91.2 fL (81-99); MONOCYTES # (AUTO) 1.7 (0.2-0.8); MONOCYTES % 6.6 % (4.4-11.3); NEUTROPHILS # (AUTO) 21.3 (2.1-6.9); NEUTROPHILS % 82.8 % (38.7-80.0); PLATELET COUNT 236 x10e3/uL (140-360); RED BLOOD COUNT 3.74 x10e6/uL (4.3-5.7); RED CELL DISTRIBUTION WIDTH 13.2 % (11.7-14.4)
[2019-01-21 04:13] LABS: ANION GAP 13.5 mmol/L (8-16); BLOOD UREA NITROGEN 15 mg/dL (7-26); BUN/CREATININE RATIO 14 (6-25); CARBON DIOXIDE 22 mmol/L (22-29); CHLORIDE 104 mmol/L (98-107); CHOL/HDL RATIO 3.1 (3.9-4.7); CHOLESTEROL 81 MD/DL (0-199); CREATININE, SERUM 1.09 mg/dL (0.72-1.25); EST GLOMERULAR FILTRATION RATE > 60 ML/MIN (60-); GLUCOSE 148 mg/dL (74-118); HDL CHOLESTEROL 26 MG/DL (40-60); LDL CHOLESTEROL 32 MG/DL (60-130); POTASSIUM 3.5 mmol/L (3.5-5.1); SODIUM 136 mmol/L (136-145); TRIGLYCERIDES 114 MG/DL (0-149)
[2019-01-21 04:33] LABS: THYROID STIMULATING HORMONE 1.108 uIU/mL (0.350-4.940)
[2019-01-21] MEDS: ACETAMINOPHEN 325 MG TAB PO PRN ×2 (04:40→17:16)
[2019-01-21] MEDS: CEFEPIME 2 GM/NS 0.9% 100 ML 100 ML IV SCH ×2 (05:26→17:18)
[2019-01-21] MEDS: SODIUM CHLORIDE 0.9% 1000ML 1,000 ML IV SCH (05:45)
[2019-01-21] MEDS: MEROPENEM 1GM 100 ML IV SCH ×3 (06:23→21:57)
--- NOTE | 2019-01-21 07:17 | NUR ---
REPORT GIVEN TO ONCOMING NURSE,WALKING ROUNDS MADE.PT RESTING IN BED WITH NO S/S OF DISTRESS.
[2019-01-21] MEDS: DORZOLAMIDE/TIMOLOL/PF 1 EACH DROPERETTE OP SCH ×2 (09:15→17:17)
[2019-01-21] MEDS: METOPROLOL TARTRATE 25 MG TAB PO SCH ×2 (09:16→17:17)
[2019-01-21] MEDS: ALLOPURINOL 300 MG TAB PO SCH (09:17)
[2019-01-21] MEDS: CLOPIDOGREL BISULFATE 75 MG TAB PO SCH (09:17)
[2019-01-21] MEDS: INSULIN REGULAR, HUMAN 100 UNIT/1 ML 3ML VIAL SQ SCH ×4 (09:19→21:00)
--- NOTE | 2019-01-21 19:10 | NUR ---
Completed rounds with morning nurse. Patient alert to name. Patient lying right side HOB 60 degrees in bed. Denies pain at this time. Family at bedside. Call wesley within reach. Bed low and locked. Will continue to monitor.
[2019-01-21] MEDS: ATORVASTATIN 40 MG TAB PO SCH (20:52)
[2019-01-21] MEDS: INSULIN GLARGINE 100 UNITS/ML VIAL SQ SCH (21:00)
[2019-01-21] MEDS: LATANOPROST(OPTH) 2.5 ML BTL OU SCH (21:03)
[2019-01-22] VITALS (8 sets, daily range): BP systolic 126–160; BP diastolic 58–74
[2019-01-22] MEDS: MEROPENEM 1GM 100 ML IV SCH ×3 (05:40→22:00)
[2019-01-22 06:28] LABS: BASOPHILS # (AUTO) 0.1 (0.0-0.1); BASOPHILS % 0.4 % (0.0-1.0); EOSINOPHILS # (AUTO) 0.5 (0.0-0.4); EOSINOPHILS % 2.5 % (0.0-6.0); LYMPHOCYTES # (AUTO) 1.9 (1.0-3.2); MEAN CORPUSCULAR HEMOGLOBIN 29.8 pg (28-32); MEAN CORPUSCULAR HGB CONC 32.4 g/dL (31-35); MEAN CORPUSCULAR VOLUME 92.1 fL (81-99); MONOCYTES # (AUTO) 1.5 (0.2-0.8); MONOCYTES % 7.8 % (4.4-11.3); NEUTROPHILS # (AUTO) 15.2 (2.1-6.9); NEUTROPHILS % 78.5 % (38.7-80.0); PLATELET COUNT 243 x10e3/uL (140-360); RED BLOOD COUNT 3.69 x10e6/uL (4.3-5.7); RED CELL DISTRIBUTION WIDTH 13.3 % (11.7-14.4)
[2019-01-22] MEDS: CEFEPIME 2 GM/NS 0.9% 100 ML 100 ML IV SCH (06:43)
[2019-01-22 06:53] LABS: ANION GAP 13.6 mmol/L (8-16); BLOOD UREA NITROGEN 12 mg/dL (7-26); BUN/CREATININE RATIO 10 (6-25); CALCIUM 9.2 mg/dL (8.4-10.2); CARBON DIOXIDE 25 mmol/L (22-29); CHLORIDE 104 mmol/L (98-107); CREATININE, SERUM 1.15 mg/dL (0.72-1.25); EST GLOMERULAR FILTRATION RATE > 60 ML/MIN (60-); GLUCOSE 111 mg/dL (74-118); POTASSIUM 3.6 mmol/L (3.5-5.1); SODIUM 139 mmol/L (136-145)
[2019-01-22] MEDS: INSULIN REGULAR, HUMAN 100 UNIT/1 ML 3ML VIAL SQ SCH ×4 (07:30→20:45)
[2019-01-22] MEDS: DORZOLAMIDE/TIMOLOL/PF 1 EACH DROPERETTE OP SCH ×2 (09:00→16:41)
[2019-01-22] MEDS: METOPROLOL TARTRATE 25 MG TAB PO SCH ×2 (09:36→16:30)
[2019-01-22] MEDS: ALLOPURINOL 300 MG TAB PO SCH (09:37)
[2019-01-22] MEDS: CLOPIDOGREL BISULFATE 75 MG TAB PO SCH (09:37)
--- NOTE | 2019-01-22 10:59 | NUR ---
Order received for home health. Discussed with patient and Manda () [phone]. Patient and choose [facility] . Choice letter signed and placed on chart. Addendum: 01/22/19 at 1158 by [facility] faxed to [phone] [facility]. verified pts home address and phone number
--- NOTE | 2019-01-22 19:05 | NUR ---
Rounds with morning nurse. Patient alert to name. Patient lying in bed HOB 75 degrees in bed. Denies pain at this time. Family at bedside. Call wesley within reach. Bed low and locked. Will continue to monitor.
[2019-01-22] MEDS: LATANOPROST(OPTH) 2.5 ML BTL OU SCH (20:45)
[2019-01-22] MEDS: ATORVASTATIN 40 MG TAB PO SCH (20:45)
[2019-01-22] MEDS: INSULIN GLARGINE 100 UNITS/ML VIAL SQ SCH (20:45)
[2019-01-23] VITALS (8 sets, daily range): BP systolic 107–167; BP diastolic 59–80
[2019-01-23] MEDS: MEROPENEM 1GM 100 ML IV SCH ×3 (06:00→21:11)
--- NOTE | 2019-01-23 07:10 | NUR ---
PATIENT IS IN STABLE CONDITION WITH NO S/S OF RESPIRATORY DISTRESS. NO PAIN VOICED. BOSTON IN PLACE DRAINING TO LEG BAG. CALL LIGHT IS WITHIN REACH, PATIENT IS INSTRUCTED TO CALL FOR ASSISTANCE NEEDED.
[2019-01-23] MEDS: INSULIN REGULAR, HUMAN 100 UNIT/1 ML 3ML VIAL SQ SCH ×4 (07:30→21:00)
[2019-01-23] MEDS: ALLOPURINOL 300 MG TAB PO SCH (08:42)
[2019-01-23] MEDS: CLOPIDOGREL BISULFATE 75 MG TAB PO SCH (08:42)
[2019-01-23] MEDS: METOPROLOL TARTRATE 25 MG TAB PO SCH ×2 (08:42→16:57)
[2019-01-23] MEDS: DORZOLAMIDE/TIMOLOL/PF 1 EACH DROPERETTE OP SCH ×2 (08:43→16:57)
--- NOTE | 2019-01-23 13:18 | NUR ---
CALLED AND SPOKE WITH BHARTI DAS N.P. REGARDING PATIENT'S TEMPERATURES OF 100.6 AND AND 100.2 AND POSSIBLE BLOOD CULTURE ORDER. NO NEW ORDER GIVEN FOR BLOOD CULTURE. ORDER TO CONTINUE WITH IV ANTIBIOTICS AT THIS TIME. NEW ORDER FOR LABS FOR TOMORROW, 01/24/19.
[2019-01-23] MEDS: BENZONATATE 100 MG CAP PO PRN (19:46)
--- NOTE | 2019-01-23 19:47 | NUR ---
PATIENT IS IN STABLE CONDITION WITH NO S/S OF RESPIRATORY DISTRESS. NO PAIN VOICED. BOSTON IN PLACE DRAINING TO LEG BAG. COUGH MEDICINE GIVEN TO PATIENT. PRESENT IN ROOM. CALL LIGHT IS WITHIN REACH, PATIENT IS INSTRUCTED TO CALL FOR ASSISTANCE NEEDED. BEDSIDE REPORT GIVEN TO ONCOMING NURSE.
[2019-01-23] MEDS: INSULIN GLARGINE 100 UNITS/ML VIAL SQ SCH (21:00)
[2019-01-23] MEDS: LATANOPROST(OPTH) 2.5 ML BTL OU SCH (21:09)
[2019-01-23] MEDS: ATORVASTATIN 40 MG TAB PO SCH (21:09)
[2019-01-23] MEDS: FAMOTIDINE 20 MG TAB PO SCH (21:20)
[2019-01-23 21:23] LABS: BASOPHILS # (AUTO) 0.1 (0.0-0.1); BASOPHILS % 0.8 % (0.0-1.0); EOSINOPHILS # (AUTO) 0.3 (0.0-0.4); EOSINOPHILS % 2.8 % (0.0-6.0); HEMATOCRIT 37.4 % (38.2-49.6); HEMOGLOBIN 12.2 g/dL (14.0-18.0); LYMPHOCYTES # (AUTO) 1.7 (1.0-3.2); LYMPHOCYTES % 14.3 % (18.0-39.1); MEAN CORPUSCULAR HEMOGLOBIN 29.8 pg (28-32); MEAN CORPUSCULAR HGB CONC 32.6 g/dL (31-35); MEAN CORPUSCULAR VOLUME 91.4 fL (81-99); MONOCYTES # (AUTO) 1.1 (0.2-0.8); MONOCYTES % 8.9 % (4.4-11.3); NEUTROPHILS # (AUTO) 8.5 (2.1-6.9); NEUTROPHILS % 71.9 % (38.7-80.0); PLATELET COUNT 266 x10e3/uL (140-360); RED BLOOD COUNT 4.09 x10e6/uL (4.3-5.7); RED CELL DISTRIBUTION WIDTH 13.2 % (11.7-14.4)
[2019-01-24 00:21] VITALS: BP 146/78
[2019-01-24 03:41] LABS: HEMATOCRIT 35.3 % (38.2-49.6); HEMOGLOBIN 11.6 g/dL (14.0-18.0); MEAN CORPUSCULAR HEMOGLOBIN 29.8 pg (28-32); MEAN CORPUSCULAR HGB CONC 32.9 g/dL (31-35); MEAN CORPUSCULAR VOLUME 90.7 fL (81-99); PLATELET COUNT 260 x10e3/uL (140-360); RED BLOOD COUNT 3.89 x10e6/uL (4.3-5.7); RED CELL DISTRIBUTION WIDTH 13.2 % (11.7-14.4)
[2019-01-24 04:04] LABS: ANION GAP 14.7 mmol/L (8-16); BLOOD UREA NITROGEN 14 mg/dL (7-26); BUN/CREATININE RATIO 13 (6-25); CALCIUM 9.8 mg/dL (8.4-10.2); CARBON DIOXIDE 26 mmol/L (22-29); CHLORIDE 104 mmol/L (98-107); CREATININE, SERUM 1.05 mg/dL (0.72-1.25); EST GLOMERULAR FILTRATION RATE > 60 ML/MIN (60-); GLUCOSE 130 mg/dL (74-118); POTASSIUM 3.7 mmol/L (3.5-5.1); SODIUM 141 mmol/L (136-145)
[2019-01-24 04:26] LABS: MAGNESIUM 1.7 MG/DL (1.3-2.1); PHOSPHORUS 1.5 MG/DL (2.3-4.7)
[2019-01-24 05:50] VITALS: BP 168/76
[2019-01-24] MEDS: MEROPENEM 1GM 100 ML IV SCH (06:09)
--- NOTE | 2019-01-24 07:10 | NUR ---
PT ALERT RESP EVEN AND UNLABORED AT THIS TIME NO DISTRESS NOTED AT THIS TIME, PT ABLE TO MAKE NEEDS KNOWN, CALL LIGHT IN REACH.
[2019-01-24] MEDS: INSULIN REGULAR, HUMAN 100 UNIT/1 ML 3ML VIAL SQ SCH ×2 (07:30→11:30)
[2019-01-24 07:34] VITALS: BP 123/62
[2019-01-24 08:24] VITALS: BP 123/62
[2019-01-24] MEDS: ALLOPURINOL 300 MG TAB PO SCH (08:57)
[2019-01-24] MEDS: FAMOTIDINE 20 MG TAB PO SCH (08:57)
[2019-01-24] MEDS: CLOPIDOGREL BISULFATE 75 MG TAB PO SCH (08:57)
[2019-01-24] MEDS: METOPROLOL TARTRATE 25 MG TAB PO SCH (08:57)
[2019-01-24] MEDS: DORZOLAMIDE/TIMOLOL/PF 1 EACH DROPERETTE OP SCH (09:00)
[2019-01-24] MEDS ORDERED: DORZOLAMIDE/TIMOLOL/PF 1 EACH DROPERETTE OP SCH (09:30)
[2019-01-24] MEDS ORDERED: LEVAQUIN500 MG PO (09:36)
[2019-01-24] MEDS ORDERED: ONDANSETRON HCL 4 MG ORAL DISINTEGRATING TAB PO PRN (11:00)
[2019-01-24 11:07] VITALS: BP 115/72
[2019-01-24] MEDS: BENZONATATE 100 MG CAP PO PRN (12:07)
[2019-01-24 15:27] VITALS: BP 123/67
--- NOTE | 2019-01-24 15:47 | NUR ---
notified by [facility] that patient is not in network with that company. Directed to [employer]. Faxed clinical info to [employer]. Spoke to Tete an hour late, she states they have received info, are currently processing it. When they have processed it, the company they choose will reach out to Mr. Link to set up services. Notified Mr. Link to let him know and he verbalizes understanding.
--- NOTE | 2019-01-24 16:23 | NUR ---
PT DISCHARGED HOME WITH FAMILY MEMBER, PT WAS GIVEN INFORMATION TO FOLLOW UP WITH HIS PHYSICIANS, PT IV SITE REMOVED, NO SWELLING NO REDNESS TO SITE. PT GIVEN INFORMATION ON HIS DIAGNOSES, PT TEACHING WAS GIVEN ON TENISHA BOSTON , WITH RETURN DEMONSTRATION.
--- NOTE | 2019-01-25 06:16 | Discharge Summary ---
ADMISSION DIAGNOSES: 1. Urinary tract infection with sepsis, present on admission. 2. Chronic kidney disease, 3. 3. Hypertension with chronic kidney disease 3. 4. Hyperlipidemia. 5. Gout. 6. History of coronary artery disease with stents. 7. Glaucoma. 8. Morbid obesity with a BMI of 42. DISCHARGE DIAGNOSES: 1. Urinary tract infection with sepsis, present on admission. 2. Chronic kidney disease, 3. 3. Hypertension with chronic kidney disease 3. 4. Hyperlipidemia. 5. Gout. 6. History of coronary artery disease with stents. 7. Glaucoma. 8. Morbid obesity with a BMI of 42. 9. Pseudomonas aeruginosa urinary tract infection present on admission, rule out bacteremia, rule out flu, rule out Strep. 10. History of type 2 diabetes. 11. Neurogenic bladder with urinary retention. 12. Coronary artery disease with stents. 13. Peripheral vascular disease. SURGICAL HISTORY: Cholecystectomy, appendectomy, head lipoma removal, and left cataract surgery. FAMILY HISTORY: The patient's mom had cancer. The patient's uncles have diabetes. SOCIAL HISTORY: The patient admits to quitting alcohol use two months prior to admission. HOSPITAL COURSE: 63-year-old male admits with low urine output and fever. Monday night, he changed his Greene to a leg bag with no issues. The then noticed the patient began being groggy and decreased urine output. On Monday, he had a fever of 102.9. He denies hematuria and dysuria. He spoke with Dr. Palacios, who told him to flush the Greene and come to the ER if the fever persists. On the day of admission, the patient had a fever of 101.9, so they returned to the ER. On admission, the patient was started on cefepime and Merrem. Urology was consulted. Chest x-ray was negative. CT of the abdomen and pelvis showed no nephrolithiasis or evidence of obstructive urolithiasis. Blood cultures negative, throat culture negative, strep negative, and flu negative. Urine culture came back positive for Pseudomonas aeruginosa. It took many days for the WBC to come down to normal. Once it did, the patient was discharged home on 5 more days of Levaquin per sensitivity report. The patient understands discharge instructions and agrees with plan. He was advised to follow up with primary care in 1 to 2 weeks and Urology as discussed. Dictated by Dang M Dong, CASE LINER MD IMANI Vela/DOROTHY /[id number]
== END 2019-01-24 15:54 | disposition home health service (06) | DRG 698 ==
LOC: ER 16:26 → ERHOLD 21:37 → MED/SURG3 01-20 15:33
PROVIDERS: ADMIT Internal Medicine; ATTEND Internal Medicine
DX: T83.511A Infection and inflammatory reaction due to indwelling urethral catheter, initial encounter (principal); A41.9 Sepsis, unspecified organism; N30.00 Acute cystitis without hematuria; Z68.41 Body mass index [BMI] 40.0-44.9, adult; N17.9 Acute kidney failure, unspecified; Z88.2 Allergy status to sulfonamides; E78.5 Hyperlipidemia, unspecified; Z90.49 Acquired absence of other specified parts of digestive tract; N31.9 Neuromuscular dysfunction of bladder, unspecified; H40.9 Unspecified glaucoma; M10.9 Gout, unspecified; Z95.5 Presence of coronary angioplasty implant and graft; I25.10 Atherosclerotic heart disease of native coronary artery without angina pectoris; E11.51 Type 2 diabetes mellitus with diabetic peripheral angiopathy without gangrene; Z83.3 Family history of diabetes mellitus; Z80.9 Family history of malignant neoplasm, unspecified; Z87.891 Personal history of nicotine dependence; E11.22 Type 2 diabetes mellitus with diabetic chronic kidney disease; I12.9 Hypertensive chronic kidney disease with stage 1 through stage 4 chronic kidney disease, or unspecified chronic kidney disease; N18.3 Chronic kidney disease, stage 3 (moderate); E66.01 Morbid (severe) obesity due to excess calories; N40.1 Benign prostatic hyperplasia with lower urinary tract symptoms; R33.8 Other retention of urine; D64.9 Anemia, unspecified; B96.5 Pseudomonas (aeruginosa) (mallei) (pseudomallei) as the cause of diseases classified elsewhere; N39.498 Other specified urinary incontinence
CPT/HCPCS: 36415; 71046; 74176; 80048; 80053; 80061; 81001; 82948; 83036; 83518; 83605; 83735; 84100; 84443; 85007; 85025; 85027; 85610; 85730; 87040; 87070; 87086; 87186; 87400; 99285; J1815; J1817; J3370; J7030

== ENCOUNTER → 2020-01-28 | Day surgery (SDC) | payer MEDICARE, OTHER ==
[2020-01-23 09:40] LABS: BASOPHILS # (AUTO) 0.1 (0.0-0.1); BASOPHILS % 0.7 % (0.0-1.0); EOSINOPHILS # (AUTO) 0.2 (0.0-0.4); EOSINOPHILS % 1.6 % (0.0-6.0); HEMATOCRIT 40.3 % (38.2-49.6); HEMOGLOBIN 13.2 g/dL (14.0-18.0); LYMPHOCYTES # (AUTO) 2.2 (1.0-3.2); LYMPHOCYTES % 19.1 % (18.0-39.1); MEAN CORPUSCULAR HEMOGLOBIN 30.6 pg (28-32); MEAN CORPUSCULAR HGB CONC 32.8 g/dL (31-35); MEAN CORPUSCULAR VOLUME 93.3 fL (81-99); MONOCYTES # (AUTO) 0.8 (0.2-0.8); MONOCYTES % 7.2 % (4.4-11.3); NEUTROPHILS # (AUTO) 8.2 (2.1-6.9); PLATELET COUNT 227 x10e3/uL (140-360); RED BLOOD COUNT 4.32 x10e6/uL (4.3-5.7); RED CELL DISTRIBUTION WIDTH 13.3 % (11.7-14.4)
[2020-01-23 10:20] LABS: ALBUMIN 3.9 g/dL (3.5-5.0); ALBUMIN/GLOBULIN RATIO 1.1 (0.8-2.0); ANION GAP 12.6 mmol/L (8-16); CALCIUM 8.9 mg/dL (8.4-10.2); CREATININE, SERUM 1.37 mg/dL (0.72-1.25); POTASSIUM 4.6 mmol/L (3.5-5.1)
[2020-01-28] VITALS (7 sets, daily range): BP systolic 122–157; BP diastolic 76–99
[~2020-01-28] MED LIST changes: +ALPRAZOLAM 0.5 MG TAB ONE; +BENICAR20 MG PO; +DIPHENHYDRAMINE HCL 25 MG CAP ONE; +DORZOLAMIDE 2%10 ML OP; +FENTANYL CITRATE/PF 100MCG/2 ML INJ ONE; +HEPARIN SOD/SOD CHLORIDE 2,000 ML ONE; +HUMALOG100 UNIT/1 SQ; +IOPAMIDOL 370 MG/ML 200 ML INFUS..BTL INJ ONE; +LEVAQUIN500 MG PO; +LIDOCAINE HCL 2% LOCAL 20 ML VIAL ONE; +MIDAZOLAM HCL 2 MG/2 ML VIAL ONE; +MULTI-VITAMIN1 EACH PO; +OZEMPIC1 MG/0.75 SC; +SODIUM CHLORIDE 0.9% 1000ML 1,000 ML ONE; +TRESIBA100 UNIT/1 SC; +TRISEBA SQ; +ZINC PO; +[UNRECOGNIZED DRUG - OTHER] PO
== END | disposition home or self-care (01) ==
LOC: CATH LAB 11:26
PROVIDERS: ATTEND Internal Medicine Interventional Cardiology
DX: I25.118 Atherosclerotic heart disease of native coronary artery with other forms of angina pectoris (principal); R94.39 Abnormal result of other cardiovascular function study; E11.22 Type 2 diabetes mellitus with diabetic chronic kidney disease; I12.9 Hypertensive chronic kidney disease with stage 1 through stage 4 chronic kidney disease, or unspecified chronic kidney disease; N18.30 Chronic kidney disease, stage 3 unspecified; G47.33 Obstructive sleep apnea (adult) (pediatric); Z01.812 Encounter for preprocedural laboratory examination; Z11.59 Encounter for screening for other viral diseases; Z79.4 Long term (current) use of insulin; Z79.02 Long term (current) use of antithrombotics/antiplatelets; Z68.41 Body mass index [BMI] 40.0-44.9, adult; Z86.19 Personal history of other infectious and parasitic diseases; Z82.49 Family history of ischemic heart disease and other diseases of the circulatory system; Z83.3 Family history of diabetes mellitus
CPT/HCPCS: 36415; 76937; 80053; 85025; 93454; C1769; C1887; J2001; J2250; J3010; J7030; Q9967; U0002; 99152